=== PATIENT | female | born 1960 | race Caucasian/White ===

== ENCOUNTER 2018-04-22 15:56 | Emergency (ER) | payer BC ==
--- NOTE | 2018-04-22 16:24 | Emergency Department Record ---
History of Present Illness - General Chief complaint: Female Urogenital Problem Stated complaint: COUGH,VAGINAL BLEEDING Time Seen by Provider: 04/22/18 16:15 Source: Patient Mode of Arrival: Ambulatory Limitations: No limitations - History of Present Illness Initial comments: The patient is here due to a 7 day hx of cough and congestion but about 2 hours ago began to urinate and noticed blood. She denies any AP, nausea, vomiting, back pain or fever. She has no hx of kidney or bladder issues. MD Complaint: Other Onset/Timin -: Hour(s) Severity: Moderate Severity scale (1-10): 7 Quality: Burning, Other Consistency: Intermittent Improves with: None Worsens with: Urination Patient : No Associated Symptoms: Dysuria, Hematuria - Related Data Home Medications Medication Instructions Recorded Confirmed Last Taken Amlodipine Besylate/Benazepril 1 tab PO DAILY 04/22/18 04/22/18 04/22/18 [Amlodipine-Benazepril 10-40 mg] Atorvastatin Calcium 40 mg PO DAILY 04/22/18 04/22/18 04/21/18 Insulin Aspart [Novolog Flexpen] 10 units SQ ASDIR 04/22/18 04/22/18 04/22/18 Insulin Degludec [Tresiba 52 units SQ ASDIR 04/22/18 04/22/18 04/22/18 Flextouch U-200] Methimazole 5 mg PO ASDIR 04/22/18 04/22/18 04/22/18 Metoprolol Succinate 25 mg PO DAILY 04/22/18 04/22/18 04/22/18 Previous Rx's Medication Instructions Recorded Ciprofloxacin HCl [Cipro] 500 mg PO Q12HR #14 tablet 04/22/18 Phenazopyridine HCl [Pyridium] 100 mg PO TID #6 tablet 04/22/18 Allergies Allergy/AdvReac Type Severity Reaction Status Date / Time No Known Drug Allergies Allergy Verified 04/22/18 16:02 Travel Screening - Travel/Exposure Within Last 30 Days Have you traveled within the last 30 days?: No - Travel/Exposure Within Last Year Have you traveled outside the [place] in the last year?: No - Additonal Travel Details Have you been exposed to anyone with a communicable illness?: No - Travel Symptoms Symptom Screening: None Review of Systems Constitutional: Denies: Chills, Fever Eyes: Denies: Eye discharge ENT: Reports: Congestion Respiratory: Reports: Cough. Denies: Dyspnea Cardiovascular: Denies: Arrhythmia, Chest pain Endocrine: Denies: Fatigue Gastrointestinal: Denies: Abdominal pain, Nausea Genitourinary: Reports: Hematuria. Denies: Dysuria Musculoskeletal: Denies: Arthralgia Skin: Denies: Bruising Past Medical History - SOCIAL HISTORY Smoking Status: Never smoker Alcohol Use: None Drug Use: None - RESPIRATORY Hx Respiratory Disorders: No - CARDIOVASCULAR Hx Cardio Disorders: Yes Hx Hypertension: Yes (well controlled) - NEURO Hx Neuro Disorders: No - GI Hx GI Disorders: Yes Comment:: c/o abn bowel habits d/t hyperthyroid - Hx Genitourinary Disorders: Yes Hx UTI: Yes - ENDOCRINE Hx Endocrine Disorders: Yes Hx Diabetes: Yes Hx Thyroid Disease: Yes (hyperthyroid) - MUSCULOSKELETAL Hx Musculoskeletal Disorders: Yes - PSYCH Hx Psych Problems: No - HEMATOLOGY/ONCOLOGY Hx Hematology/Oncology Disorders: No Family Medical History Any Significant Family History?: No *Cancer Comment: Maternal uncle and cousin--colon cancer Physical Exam - General General Appearance: Alert, Oriented x3, Cooperative, No acute distress - Head Head exam: Atraumatic, Normocephalic, Normal inspection - Eye Eye exam: Normal appearance, PERRL, EOMI - ENT Throat exam: Normal inspection. negative: Tonsillar erythema, Tonsillar exudate - Neck Neck exam: Normal inspection, Full ROM. negative: Tenderness - Respiratory Respiratory exam: Normal lung sounds bilaterally. negative: Respiratory distress - Cardiovascular Cardiovascular Exam: Regular rate, Normal rhythm, Normal heart sounds - GI/Abdominal GI/Abdominal exam: Soft, Normal bowel sounds. negative: Rebound, Rigid, Tenderness - exam: negative: Abnormal external exam, Vaginal bleeding (There was no blood in the vaginal vault.), Vaginal discharge - Extremities Extremities exam: Normal inspection, Full ROM, Normal capillary refill. negative: Tenderness - Neurological Neurological exam: Alert, Normal gait. negative: Abnormal gait, Motor sensory deficit Course Vital Signs 04/22/18 16:07 Temperature 98.9 F Pulse Rate 82 Respiratory 18 Rate Blood Pressure 174/91 Pulse Ox 96 - Reevaluation(s) Reevaluation #1: The patient is doing very well at this time. Her bleeding has resolved at this time and she has no AP. Since the bleeding does appear to be coming from the bladder and she feels like she has a UTI we will treat for the presumed infection. The CT does demonstrate a VERY large fibroid that appears to be crowding out the bladder and pelvis. Due to that the patient is to see her [facility] doctor SENG and also is to F/U with Dr. Rider tomorrow as previously planned. 04/22/18 18:16 Medical Decision Making - Data Complexity MDM Data: Labs Ordered and/or Reviewed, X-Ray Ordered and/or Reviewed - Lab Data Result diagrams: 04/22/18 16:40 04/22/18 16:40 - Radiology Data Radiology results: Report reviewed (Abd CT: Very large uterine fibroid. Kidney and bladder appear normal.) Disposition Disposition: Discharge Clinical Impression: Hematuria Qualifiers: Hematuria type: unspecified type Qualified Code(s): R31.9 - Hematuria, unspecified Fibroid, uterine Qualifiers: Uterine leiomyoma location: unspecified location Qualified Code(s): D25.9 - Leiomyoma of uterus, unspecified Disposition: Home, Self-Care Condition: (2) Stable Instructions: Uterine Fibroids (ED), Hematuria (ED) Additional Instructions: Please take the Cipro and Pyridium as directed and please keep your appointment with Dr. Rider for tomorrow. Please see your [facility] specialist SENG and return to the ER for any worsening pain, fever, or vomiting. Prescriptions: Ciprofloxacin HCl [Cipro] 500 mg PO Q12HR #14 tablet Phenazopyridine HCl [Pyridium] 100 mg PO TID #6 tablet Forms: Patient Portal Access Time of Disposition: 18:20 Quality - Quality Measures Quality Measures: N/A - Blood Pressure Screening View Details: Yes Does Patient Have Any of the Following: No Blood Pressure Classification: Hypertensive Reading Systolic Measurement: 174 Diastolic Measurement: 91 Screening for High Blood Pressure: < First Hypertensive BP, F/U Documented > [ [id number]] First Hypertensive Follow-up Interventions: Referral to alternative/primary care provider.
[2018-04-22 16:42] LABS: URINE BILIRUBIN NEGATIVE (NEGATIVE); URINE BLOOD LARGE (NEGATIVE); URINE COLOR YELLOW; URINE KETONE NEGATIVE (NEGATIVE); URINE LEUKOCYTE ESTERASE SMALL (NEGATIVE); URINE NITRITE NEGATIVE (NEGATIVE); URINE UROBILINOGEN 0.2 E.U./dL (0.20 - 1.00)
[2018-04-22 16:54] LABS: URINE PROTEIN 300 mg/dL (NEGATIVE)
[2018-04-22 16:56] LABS: URINE BACTERIA 0
[2018-04-22 17:00] LABS: URINE APPEARANCE CLEAR
[2018-04-22 17:02] LABS: BASO % 0.3 % (0-6); EOS % 2.3 % (0-6); GRAN % 79.1 % (47-80); HEMATOCRIT 44.1 % (35.0-47.0); HEMOGLOBIN 14.1 gm/dl (11.6-16.0); LYMPH % 11.8 % (16-45); MEAN CELL VOLUME 86.1 fl (81-97); MEAN CORPUSCULAR HEMOGLOBIN 27.5 pg (27-33); MEAN PLATELET VOLUME 10.2 fl (7.4-10.4); MONO % 6.5 % (0-9); PLATELET COUNT 246 K/uL (130-400); RED BLOOD COUNT 5.12 M/uL (3.80-5.40); RED CELL DISTRIBUTION WIDTH 13.9 % (11.5-14.5); WHITE BLOOD COUNT W/O DIFF 11.9 K/uL (4.2-12.2)
[2018-04-22 17:15] LABS: PARTIAL THROMBOPLASTIN TIME 27.8 SECONDS (24.5-39.1); PROTHROMBIN TIME (PATIENT) 10.3 SECONDS (9.5-12.1)
[2018-04-22 17:16] LABS: BLOOD UREA NITROGEN 14 mg/dL (6-20); CREATININE 0.5 mg/dL (0.5-0.9); EST GLOMERULAR FILTRATION RATE > 60 mL/min
[2018-04-22 17:18] LABS: GLUCOSE,RANDOM 220 mg/dL (74-109)
[2018-04-22] MEDS: 0.9 % SODIUM CHLORIDE 1,000 ML BAG IV ONE (17:32)
[2018-04-22] MEDS: KETOROLAC 30 MG/ML VIAL IVP ONE (17:32)
[2018-04-22] MEDS: CIPROFLOXACIN HCL 500 MG TABLET PO ONE (17:55)
--- NOTE | 2018-04-23 14:50 | CT SCAN REPORT ---
EXAM: NONCONTRAST CT OF THE ABDOMEN AND PELVIS HISTORY: HEMATURIA. TECHNIQUE: Noncontrast CT of the abdomen and pelvis was obtained. Comparison: CT of the abdomen and pelvis 11/27/10. FINDINGS: The lung bases are clear. Unremarkable noncontrast appearance of the liver, gallbladder, spleen, adrenal glands, and pancreas. No hydronephrosis. No calculi is detected. No focal colonic thickening or inflammatory changes. The appendix is normal. The stomach and small bowel are nondilated. No free air or free fluid in the abdomen or pelvis. The aorta has normal course and caliber. Significant enlargement of the uterus, measuring approximately 9.1 x 15.6 x 24 cm (AP x TV x CC), enlarged from 2011 comparison where it measured approximately 19 cm in length. The uterus has a lobulated contour with scattered intraparenchymal calcifications. The enlarged uterus results in mass effect on the urinary bladder. No focal adnexal abnormalities are appreciated. No suspicious lymphadenopathy is identified. Disk degeneration noted at L5-S1. No definite acute osseous findings. IMPRESSION: 1. NO EVIDENCE OF OBSTRUCTIVE UROPATHY OR UROLITHIASIS. 2. SIGNIFICANT ENLARGEMENT OF THE UTERUS WITH EXTENSIVE LOBULATION AND INTERNAL CALCIFICATIONS, SUGGESTIVE OF MASSIVE FIBROID UTERUS. THE UTERUS HAS ENLARGED MILDLY SINCE 2011 CT COMPARISON. THERE IS SIGNIFICANT MASS EFFECT ON THE ADJACENT URINARY BLADDER. JOB NUMBER: [id number] [facility]
--- NOTE | 2018-04-23 14:51 | RADIOLOGY REPORT ---
EXAM: CHEST, TWO VIEWS HISTORY: COUGH FOR ONE WEEK. TECHNIQUE: Two views of the chest were obtained. Comparison: None. FINDINGS: The cardiac silhouette is within normal size limits. No focal pulmonary consolidation. No pleural effusion or pneumothorax. IMPRESSION: NO ACUTE LUNG FINDINGS. JOB NUMBER: [id number] [facility]
== END 2018-04-22 18:31 | disposition home or self-care (01) ==
LOC: ER 15:56
DX: R31.0 Gross hematuria (principal); R30.0 Dysuria; D52.9 Folate deficiency anemia, unspecified; R05 Cough; I10 Essential (primary) hypertension; E11.9 Type 2 diabetes mellitus without complications; Z79.4 Long term (current) use of insulin
CPT/HCPCS: 99284 ×2; 96374; 85025; 85730; 85610; 80048; 81001; 84145; 71046; 74176; J1885; J7030

== ENCOUNTER 2018-10-25 20:24 | Inpatient (IN) | payer BC ==
[2018-10-25] MEDS ORDERED: 0.9 % SODIUM CHLORIDE 1,000 ML BAG IV ONE ×2 (20:57→20:58)
[2018-10-25] MEDS ORDERED: CEFTRIAXONE SODIUM 1 GM in 0.9 % SODIUM CHLORIDE 100ML 100 ML IVPB ONE (20:58)
--- NOTE | 2018-10-25 20:59 | Emergency Department Record ---
History of Present Illness - General Chief Complaint: Cough Stated Complaint: FEVER,COUGH, Time Seen by Provider: 10/25/18 20:47 Source: Patient Mode of Arrival: Ambulatory - History of Present Illness Initial Comments: Patient states that she developed a cough cold and congestion of 10-20-18. On Friday she developed a fever to 101.5 a cough productive of yellow blood tinged sputum, shortness of breath, myalgias and arthralgias. She also has no appetite, is not able to sleep, and her blood sugar is running high in the 300's today. She is a type I [facility] she also noted her pulse is fast and she has a touch of ketones. MD Complaint: Cough, Fever Onset/Timin -: Days(s) - Related Data Allergies Allergy/AdvReac Type Severity Reaction Status Date / Time No Known Drug Allergies Allergy Verified 04/22/18 16:02 Travel Screening - Travel/Exposure Within Last 30 Days Have you traveled within the last 30 days?: No Review of Systems Reviewed: No additional complaints except as noted below Constitutional: Reports: As per HPI. Denies: Chills, Fever, Malaise, Night sweats, Weakness, Weight change Eyes: Reports: As per HPI. Denies: Eye discharge, Eye pain, Photophobia, Vision change ENT: Reports: As per HPI. Denies: Congestion, Dental pain, Ear pain, Epistaxis, Hearing loss, Throat pain Respiratory: Reports: As per HPI. Denies: Cough, Dyspnea, Hemoptysis, Stridor, Wheezes Cardiovascular: Reports: As per HPI. Denies: Arrhythmia, Chest pain, Dyspnea on exertion, Edema, Murmurs, Orthopnea, Palpitations, Paroxysmal nocturnal dyspnea, Rheumatic Fever, Syncope Endocrine: Reports: As per HPI. Denies: Fatigue, Heat or cold intolerance, Fercho ydipsia, Polyuria Gastrointestinal: Reports: As per HPI. Denies: Abdominal pain, Constipation, Diarrhea, Hematemesis, Hematochezia, Melena, Nausea, Vomiting Genitourinary: Reports: As per HPI. Denies: Abnormal menses, Discharge, Dyspareunia, Dysuria, Frequency, Hematuria, Incontinence, Retention, Urgency Musculoskeletal: Reports: As per HPI. Denies: Arthralgia, Back pain, Gout, Joint swelling, Myalgia, Neck pain Skin: Reports: As per HPI. Denies: Bruising, Change in color, Change in hair/nails, Lesions, Pruritus, Rash Neurological: Reports: As per HPI. Denies: Abnormal gait, Confusion, Headache, Numbness, Paresthesias, Seizure, Tingling, Tremors, Vertigo, Weakness Psychiatric: Reports: As per HPI. Denies: Anxiety, Auditory hallucinations, Depression, Homicidal thoughts, Suicidal thoughts, Visual hallucinations Hematological/Lymphatic: Reports: As per HPI. Denies: Anemia, Blood Clots, Easy bleeding, Easy bruising, Swollen glands Past Medical History - SOCIAL HISTORY Smoking Status: Never smoker Alcohol Use: None Drug Use: None - RESPIRATORY Hx Respiratory Disorders: No - CARDIOVASCULAR Hx Cardio Disorders: Yes Hx Hypertension: Yes (well controlled) - NEURO Hx Neuro Disorders: No - GI Hx GI Disorders: Yes Comment:: c/o abn bowel habits d/t hyperthyroid - Hx Genitourinary Disorders: Yes Hx UTI: Yes - ENDOCRINE Hx Endocrine Disorders: Yes Hx Diabetes: Yes Hx Thyroid Disease: Yes (hyperthyroid) - MUSCULOSKELETAL Hx Musculoskeletal Disorders: Yes - PSYCH Hx Psych Problems: No - HEMATOLOGY/ONCOLOGY Hx Hematology/Oncology Disorders: No Family Medical History Any Significant Family History?: Yes *Cancer Comment: Maternal uncle and cousin--colon cancer Physical Exam - General General Appearance: Alert, Oriented x3, Cooperative, Mild distress - Head Head exam: Normal inspection - Eye Eye exam: Normal appearance, PERRL, EOMI. negative: Conjunctival injection, Nystagmus Pupils: Normal accommodation - ENT ENT exam: Normal exam, Mucous membranes dry, Normal external ear exam, Normal orophraynx, TM's normal bilaterally Ear exam: Normal external inspection. negative: External canal tenderness Nasal Exam: Normal inspection. negative: Discharge, Sinus tenderness Mouth exam: Normal external inspection, Tongue normal Teeth exam: Normal inspection. negative: Dental caries Throat exam: Normal inspection. negative: Tonsillar erythema, Tonsillar exudate - Neck Neck exam: Normal inspection, Full ROM. negative: Lymphadenopathy, Meningismus, Tenderness - Respiratory Respiratory exam: Prolonged expiratory, Respiratory distress (mild), Wheezes (expiratory wheeze), Other (coarse coughing spasms). negative: Chest wall tenderness - Cardiovascular Cardiovascular Exam: Normal rhythm, Normal heart sounds, Tachycardia - GI/Abdominal GI/Abdominal exam: Soft, Normal bowel sounds. negative: Tenderness - Rectal Rectal exam: Deferred - exam: Deferred - Extremities Extremities exam: Normal inspection, Full ROM, Normal capillary refill. negative: Calf tenderness, Pedal edema, Tenderness - Back Back exam: Reports: Normal inspection, Full ROM. Denies: Muscle spasm, Rash noted, Tenderness - Neurological Neurological exam: Alert, CN II-XII intact, Normal gait, Oriented X3, Reflexes normal. negative: Altered, Motor sensory deficit - Psychiatric Psychiatric exam: Normal affect, Normal mood - Skin Skin exam: Dry, Intact, Normal color, Warm Course Vital Signs 10/25/18 20:35 Temperature 100.6 F H Pulse Rate [ 103 H Left] Respiratory 16 Rate Blood Pressure 174/105 [Left] Pulse Ox 94 L - Reevaluation(s) Reevaluation #1: Patient is feeling slightly better after fluids. Continues to have coughing spasms intermittently. RA biox 94%. She has elevated lactate and WBC's. PAtient agrees to admission with CT showing no PE, but multiple focal infiltrates and consolidation in the upper lobes bilaterally. there is a pulmonary nodule in the RML and left apex 8 mm maximum. Per [facility]. 10/26/18 00:22 Medical Decision Making - Lab Data Result diagrams: 10/25/18 21:00 10/25/18 21:00 Disposition Disposition: Admit Clinical Impression: Elevated lactic acid level Bilateral pneumonia Qualifiers: Pneumonia type: due to unspecified organism Lung location: unspecified part of lung Qualified Code(s): J18.9 - Pneumonia, unspecified organism Type 1 diabetes mellitus Qualifiers: Diabetes mellitus complication status: without complication Qualified Code(s): E10.9 - Type 1 diabetes mellitus without complications Disposition: Still a Patient at [facility] Decision to Admit: Admit from ER Decision to Admit Date: 10/26/18 Decision to Admit Time: 01:00 Accepting Physician: Dr. Blancas Condition: (2) Stable Quality - Quality Measures Quality Measures: N/A - Blood Pressure Screening Does Patient Have Any of the Following: No Blood Pressure Classification: Hypertensive Reading Systolic Measurement: 174 Diastolic Measurement: 105 Screening for High Blood Pressure: Patient Exclusion, Hx of HTN [G9744]
[2018-10-25] MEDS ORDERED: IPRATROPIUM/ALBUTEROL (0.5MG/3MG) NEB INH ONE (21:00)
[2018-10-25] MEDS ORDERED: ALBUTEROL (0.5% CONCENTRATED) 2.5 MG/0.5 ML VIAL.NEB INH ONE (21:01)
[2018-10-25 21:16] LABS: BASO % 0.4 % (0-6); EOS % 1.5 % (0-6); HEMATOCRIT 40.6 % (35.0-47.0); LYMPH % 10.5 % (16-45); MEAN CELL VOLUME 86.4 fl (81-97); MEAN CORPUSCULAR HEMOGLOBIN 27.7 pg (27-33); MEAN PLATELET VOLUME 10.5 fl (7.4-10.4); MONO % 8.6 % (0-9); PLATELET COUNT 252 K/uL (130-400); RED CELL DISTRIBUTION WIDTH 13.6 % (11.5-14.5); WHITE BLOOD COUNT W/O DIFF 12.4 K/uL (4.2-12.2)
[2018-10-25 21:31] LABS: BLOOD UREA NITROGEN 9 mg/dL (6-20); CREATININE 0.6 mg/dL (0.5-0.9); EST GLOMERULAR FILTRATION RATE > 60 mL/min
[2018-10-25 21:32] LABS: TOTAL PROTEIN 7.6 g/dL (6.6-8.7)
[2018-10-25 21:34] LABS: GLUCOSE,RANDOM 264 mg/dL (74-109)
[2018-10-25 21:36] LABS: ALT/SGPT 21 U/L (<33)
[2018-10-25 21:37] LABS: ACETONE,SERUM NEGATIVE (NEGATIVE); ALBUMIN 3.8 g/dL (4.0-5.0); ALKALINE PHOSPHATASE 157 U/L (35-104); AST/SGOT 22 U/L (10.0-35.0)
[2018-10-25 22:48] LABS: URINE APPEARANCE CLEAR; URINE BILIRUBIN NEGATIVE (NEGATIVE); URINE BLOOD TRACE-I (NEGATIVE); URINE COLOR YELLOW; URINE KETONE NEGATIVE (NEGATIVE); URINE LEUKOCYTE ESTERASE NEGATIVE (NEGATIVE); URINE NITRITE NEGATIVE (NEGATIVE); URINE PROTEIN NEGATIVE (NEGATIVE); URINE UROBILINOGEN 0.2 E.U./dL (0.20 - 1.00)
[2018-10-25 22:53] LABS: URINE EPITHELIAL CELLS 0 - 2 (FEW); URINE RBC NONE SEEN (NONE SEEN); URINE WBC NONE SEEN (0-2/hpf)
[2018-10-26] MEDS ORDERED: AZITHROMYCIN 500 MG TABLET PO ONE (00:20)
[2018-10-26] MEDS ORDERED: IPRATROPIUM/ALBUTEROL (0.5MG/3MG) NEB INH ONE (00:21)
[2018-10-26] MEDS ORDERED: 0.9 % SODIUM CHLORIDE 1000ML 1,000 ML IV PRN (01:18)
[2018-10-26] MEDS ORDERED: AZITHROMYCIN 500 MG in 0.9 % SODIUM CHLORIDE 250ML 250 ML IVPB SCH ×2 (01:18→22:00)
[2018-10-26] MEDS ORDERED: CEFTRIAXONE SODIUM 1 GM in 0.9 % SODIUM CHLORIDE 100ML 100 ML IVPB SCH (01:18)
[2018-10-26] MEDS: IPRATROPIUM/ALBUTEROL (0.5MG/3MG) NEB INH SCH ×2 (05:52→10:36)
[2018-10-26] MEDS ORDERED: ALBUTEROL SULFATE (0.083%) 2.5 MG/3 ML NEB INH SCH (06:00)
[2018-10-26 06:29] LABS: ABSOLUTE NEUTROPHIL COUNT 7.95; BASO % 0.3 % (0-6); EOS % 2.4 % (0-6); GRAN % 77.5 % (47-80); HEMATOCRIT 38.2 % (35.0-47.0); LYMPH % 11.2 % (16-45); MEAN CELL VOLUME 87.4 fl (81-97); MEAN CORPUSCULAR HEMOGLOBIN 27.5 pg (27-33); MEAN CORPUSCULAR HGB CONC 31.4 g/dl (32-36); MEAN PLATELET VOLUME 9.8 fl (7.4-10.4); MONO % 8.6 % (0-9); PLATELET COUNT 206 K/uL (130-400); RED BLOOD COUNT 4.37 M/uL (3.80-5.40); RED CELL DISTRIBUTION WIDTH 13.5 % (11.5-14.5); WHITE BLOOD COUNT W/O DIFF 10.3 K/uL (4.2-12.2)
[2018-10-26 06:51] LABS: ALB/GLOB RATIO 1.1 (1.1-1.8); ALBUMIN 3.5 g/dL (4.0-5.0); ALKALINE PHOSPHATASE 138 U/L (35-104); ALT/SGPT 17 U/L (<33); AST/SGOT 16 U/L (10.0-35.0); BLOOD UREA NITROGEN 7 mg/dL (6-20); CREATININE 0.6 mg/dL (0.5-0.9); EST GLOMERULAR FILTRATION RATE > 60 mL/min; GLUCOSE,RANDOM 300 mg/dL (74-109); TOTAL PROTEIN 6.6 g/dL (6.6-8.7)
[2018-10-26] MEDS ORDERED: ALBUTEROL SULFATE (0.083%) 2.5 MG/3 ML NEB INH PRN (07:46)
[2018-10-26] MEDS: BENAZEPRIL 20 MG TABLET PO SCH (09:38)
[2018-10-26] MEDS: AMLODIPINE BESYLATE 5MG TAB PO SCH (09:38)
[2018-10-26] MEDS ORDERED: METOPROLOL SUCC 25 MG TAB.ER PO SCH (10:00)
[2018-10-26] MEDS ORDERED: METHIMAZOLE 2.5 MG PO SCH (10:00)
--- NOTE | 2018-10-26 10:07 | History & Physical ---
History of Present Illness - Date of Service Date of Service for History & Physical: 10/26/18 - History of Present Illness Admitting Diagnosis: Bilateral pneumonia; leukocytosis, elevated lactate, Type 1 Diabetes, dyspnea History of Present Illness: Mrs. Reyes is a 58 y/o female with history of type I diabetes, hypertension and Grave's disease here after having cold like symptoms beginning last Friday. The patient says she began to feel weak and then noticed that she had a fever of 101.2. She says that her blood sugars were also becoming uncontrolled and she developed a productive cough followed by mild shortness of breath. The patient denies recent travel, sick contacts or hospital admissions. She takes annual flu shot but says that she hasn't had the pneumonia vaccines. On arrival to the ED the patient's d-dimer was elevated at 1.181 and subsequent CTA was negative for PE but showed multiple focal infiltrates of the bilateral, upper and lower lungs. The patient was mildly tachycardic and had mild fever of 100.1 on admission. She is admitted for bilateral pneumonia and hyperglycemia. PCP: Dr. Rider Travel Screening - Travel/Exposure Within Last 30 Days Have you traveled within the last 30 days?: No - Travel/Exposure Within Last Year Have you traveled outside the [place] in the last year?: No - Additonal Travel Details Have you been exposed to anyone with a communicable illness?: No Review of Systems Constitutional: Reports: As per HPI. Denies: Chills, Fever, Malaise, Night sweats, Weakness, Weight change Eyes: Reports: As per HPI. Denies: Eye discharge, Eye pain, Photophobia, Vision change ENT: Reports: As per HPI. Denies: Congestion, Dental pain, Ear pain, Epistaxis, Hearing loss, Throat pain Respiratory: Reports: As per HPI. Denies: Cough, Dyspnea, Hemoptysis, Stridor, Wheezes Cardiovascular: Reports: As per HPI. Denies: Arrhythmia, Chest pain, Dyspnea on exertion, Edema, Murmurs, Orthopnea, Palpitations, Paroxysmal nocturnal dyspnea, Rheumatic Fever, Syncope Endocrine: Reports: As per HPI. Denies: Fatigue, Heat or cold intolerance, Polydipsia, Polyuria Gastrointestinal: Reports: As per HPI. Denies: Abdominal pain, Constipation, Diarrhea, Hematemesis, Hematochezia, Melena, Nausea, Vomiting Genitourinary: Reports: As per HPI. Denies: Abnormal menses, Discharge, Dyspareunia, Dysuria, Frequency, Hematuria, Incontinence, Retention, Urgency Musculoskeletal: Reports: As per HPI. Denies: Arthralgia, Back pain, Gout, Joint swelling, Myalgia, Neck pain Skin: Reports: As per HPI. Denies: Bruising, Change in color, Change in hair/nails, Lesions, Pruritus, Rash Neurological: Reports: As per HPI. Denies: Abnormal gait, Confusion, Headache, Numbness, Paresthesias, Seizure, Tingling, Tremors, Vertigo, Weakness Psychiatric: Reports: As per HPI. Denies: Anxiety, Auditory hallucinations, Depression, Homicidal thoughts, Suicidal thoughts, Visual hallucinations Hematological/Lymphatic: Reports: As per HPI. Denies: Anemia, Blood Clots, Easy bleeding, Easy bruising, Swollen glands Past Medical History - SOCIAL HISTORY Smoking Status: Never smoker Alcohol Use: None Drug Use: None - RESPIRATORY Hx Respiratory Disorders: No - CARDIOVASCULAR Hx Cardio Disorders: Yes Hx Hypertension: Yes (well controlled) - NEURO Hx Neuro Disorders: No - GI Hx GI Disorders: Yes Comment:: c/o abn bowel habits d/t hyperthyroid - Hx Genitourinary Disorders: Yes Hx UTI: Yes - ENDOCRINE Hx Endocrine Disorders: Yes Hx Diabetes: Yes Hx Thyroid Disease: Yes (hyperthyroid) - MUSCULOSKELETAL Hx Musculoskeletal Disorders: Yes - PSYCH Hx Psych Problems: No - HEMATOLOGY/ONCOLOGY Hx Hematology/Oncology Disorders: No Family Medical History Any Significant Family History?: Yes *Cancer Comment: Maternal uncle and cousin--colon cancer H&P Meds/Allergies - Allergies Allergies: Allergies Allergy/AdvReac Type Severity Reaction Status Date / Time No Known Drug Allergies Allergy Verified 04/22/18 16:02 - Active Medications Active Medications: Current Medications Acetaminophen (Tylenol 500mg Tab) 1,000 mg PO Q6H PRN PRN Reason: PAIN - MILD(1-4)/FEVER Albuterol Sulfate (Albuterol Sulfate) 2.5 mg INH RESP.Q2H PRN PRN Reason: DIFFICULTY IN BREATHING Albuterol/Ipratropium (Duoneb) 3 ml INH RESP.Q4H.[facility] Last Admin: 10/26/18 05:52 Dose: 3 ml Documented by: Amlodipine Besylate (Norvasc) 10 mg PO DAILY [facility] Last Admin: 10/26/18 09:38 Dose: Not Given Documented by: Benazepril HCl (Lotensin) 40 mg PO DAILY [facility] Last Admin: 10/26/18 09:38 Dose: Not Given Documented by: Sodium Chloride () 1,000 mls @ 125 mls/hr IV .Q8H PRN PRN Reason: LARGE VOLUME IV Last Admin: 10/26/18 02:16 Dose: 125 mls/hr Documented by: Azithromycin 500 mg/ Sodium (Chloride) 250 mls @ 250 mls/hr IVPB Q24H [facility] Stop: 10/31/18 22:01 CEFTRIAXONE 1GM/50ML BAG (Ceftriaxone 1 Gm-D5w Bag) 1 gm in 50 mls @ 100 mls/hr IVPB Q24H [facility] Metoprolol Succinate (Toprol Xl) 25 mg PO DAILY [facility] Last Admin: 10/26/18 09:38 Dose: Not Given Documented by: Non-Formulary Medication (Insulin Aspart [Novolog Flexpen]) 10 units IM WMEALS [facility] Non-Formulary Medication (Insulin Degludec [Tresiba Flextouch U-200]) 56 units IM DAILY [facility] Non-Formulary Medication (Methimazole [Methimazole]) 5 mg PO DAILY [facility] Physical Exam - Vital Signs Vital Signs: Vital Signs - Last 24 Hrs Temp Pulse Pulse Resp BP Pulse Ox 10/26/18 07:28 97.6 F 90 18 130/60 96 10/26/18 06:02 22 10/26/18 05:58 86 20 92 L 10/26/18 01:47 20 10/26/18 01:18 98.1 F 95 H 22 146/60 94 L 10/26/18 00:40 97.7 F 87 20 94 L 10/26/18 00:38 90 20 94 L 10/25/18 21:03 97 H 18 95 10/25/18 20:35 100.6 F H 103 H 16 174/105 94 L - General General Appearance: Alert, Oriented x3, Cooperative, Mild distress - Head Head exam: Normal inspection - Eye Eye exam: Normal appearance, PERRL, EOMI. negative: Conjunctival injection, Nystagmus Pupils: Normal accommodation - ENT ENT exam: Normal exam, Mucous membranes dry, Normal external ear exam, Normal orophraynx, TM's normal bilaterally Ear exam: Normal external inspection. negative: External canal tenderness Nasal Exam: Normal inspection. negative: Discharge, Sinus tenderness Mouth exam: Normal external inspection, Tongue normal Teeth exam: Normal inspection. negative: Dental caries Throat exam: Normal inspection. negative: Tonsillar erythema, Tonsillar exudate - Neck Neck exam: Normal inspection, Full ROM. negative: Lymphadenopathy, Meningismus, Tenderness - Respiratory Respiratory exam: Prolonged expiratory, Other (intermittent cough). negative: Chest wall tenderness - Cardiovascular Cardiovascular Exam: Normal rhythm, Normal heart sounds, Tachycardia Peripheral Pulses: 3+: Radial (R), Radial (L), Dorsalis Pedis (R), Dorsalis Pedis (L) - GI/Abdominal GI/Abdominal exam: Soft, Normal bowel sounds. negative: Tenderness - Rectal Rectal exam: Deferred - exam: Deferred - Extremities Extremities exam: Normal inspection, Full ROM, Normal capillary refill. negative: Calf tenderness, Pedal edema, Tenderness - Back Back exam: Reports: Normal inspection, Full ROM. Denies: Muscle spasm, Rash noted, Tenderness - Neurological Neurological exam: Alert, CN II-XII intact, Normal gait, Oriented X3, Reflexes normal. negative: Altered, Motor sensory deficit - Psychiatric Psychiatric exam: Normal affect, Normal mood - Skin Skin exam: Dry, Intact, Normal color, Warm Results - Labs Result Diagrams: 10/26/18 06:25 10/26/18 06:25 Labs Last 24 Hours: Laboratory Results - last 24 hr 10/25/18 10/25/18 10/25/18 20:10 20:47 21:00 WBC 12.4 H RBC 4.70 Hgb 13.0 Hct 40.6 MCV 86.4 MCH 27.7 MCHC 32.0 RDW 13.6 Plt Count 252 MPV 10.5 H Gran % 79.0 Lymphocytes % 10.5 L Monocytes % 8.6 Eosinophils % 1.5 Basophils % 0.4 Absolute Neutrophils 9.80 D-Dimer VBG pH Sodium Potassium Chloride Carbon Dioxide Anion Gap BUN Creatinine Estimated GFR Random Glucose Lactic Acid Calcium Total Bilirubin AST ALT Alkaline Phosphatase Total Protein Albumin Globulin Albumin/Globulin Ratio Urine Color Yellow Urine Appearance Clear Urine pH 6.5 Ur Specific [place] <= 1.005 Urine Protein Negative Urine Glucose (UA) 100 mg/dl H Urine Ketones Negative Urine Blood Trace-i Urine Nitrite Negative Urine Bilirubin Negative Urine Urobilinogen 0.2 Ur Leukocyte Esterase Negative Urine RBC None seen Urine WBC None seen Ur Epithelial Cells 0 - 2 Acetone, Qual Group A Strep Screen Negative 10/25/18 10/25/18 10/25/18 21:00 21:00 21:00 WBC RBC Hgb Hct MCV MCH MCHC RDW Plt Count MPV Gran % Lymphocytes % Monocytes % Eosinophils % Basophils % Absolute Neutrophils D-Dimer 1.81 H VBG pH 7.45 H Sodium 136 Potassium 3.8 Chloride 97 L Carbon Dioxide 23.0 Anion Gap 16.0 BUN 9 Creatinine 0.6 Estimated GFR > 60 Random Glucose 264 H Lactic Acid Cancelled 1.4 Calcium 8.9 Total Bilirubin 0.50 AST 22 ALT 21 Alkaline Phosphatase 157 H Total Protein 7.6 Albumin 3.8 L Globulin 3.8 Albumin/Globulin Ratio 1.0 L Urine Color Urine Appearance Urine pH Ur Specific [place] Urine Protein Urine Glucose (UA) Urine Ketones Urine Blood Urine Nitrite Urine Bilirubin Urine Urobilinogen Ur Leukocyte Esterase Urine RBC Urine WBC Ur Epithelial Cells Acetone, Qual Negative Group A Strep Screen 10/26/18 10/26/18 06:25 06:25 WBC 10.3 RBC 4.37 Hgb 12.0 Hct 38.2 MCV 87.4 MCH 27.5 MCHC 31.4 L RDW 13.5 Plt Count 206 MPV 9.8 Gran % 77.5 Lymphocytes % 11.2 L Monocytes % 8.6 Eosinophils % 2.4 Basophils % 0.3 Absolute Neutrophils 7.95 D-Dimer VBG pH Sodium 138 Potassium 3.7 Chloride 102 Carbon Dioxide 24.0 Anion Gap 12.0 BUN 7 Creatinine 0.6 Estimated GFR > 60 Random Glucose 300 H Lactic Acid Calcium 8.4 L Total Bilirubin 0.60 AST 16 ALT 17 Alkaline Phosphatase 138 H Total Protein 6.6 Albumin 3.5 L Globulin 3.1 Albumin/Globulin Ratio 1.1 Urine Color Urine Appearance Urine pH Ur Specific [place] Urine Protein Urine Glucose (UA) Urine Ketones Urine Blood Urine Nitrite Urine Bilirubin Urine Urobilinogen Ur Leukocyte Esterase Urine RBC Urine WBC Ur Epithelial Cells Acetone, Qual Group A Strep Screen VTE H&P Assessment - Risk for VTE Risk for VTE: Yes Risk Level: High Risk Assessment Date: 10/26/18 Risk Assessment Time: 09:58 VTE Orders Placed or Will Be Placed: Yes Plan - Inpatient Certification Inpatient Certification: Admit to inpatient care: Based on my medical assessment, after consideration of patient's risk factors (age, co-morbidities and patient presenting symptoms and acuity), I expect that this patient will remain in the hospital greater than or equal to two midnights and that the services needed warrant inpatient care because: Patient Risk Factors: Pneumonia, DM Estimated length of stay: 72 The patient may reasonably be expected to be discharged or transferred to a hospital within 96 hours after admission to [facility] I certify that my determination is in accordance with my understanding of Medicare requirements for reasonable and necessary inpatient services. 10/26/18 09:58 - Detailed Diagnosis and Plan (1) Community acquired pneumonia, bilateral Current Visit: Yes Status: Acute Base Code: J18.9 - PNEUMONIA, UNSPECIFIED ORGANISM Comment: - 10/26/18: - No recent exposure to sick contacts or travel, no hospitalizations. - CTA noting bilateral infiltrates upper/lower. - On Rocephin 1gm IV daily, Zithromax 500mg IV daily, change to PO. - Oxygen to maintain saturations > 92%. - Strep A negative, Check influenza A/B PCR. (2) Type 1 diabetes mellitus Current Visit: Yes Status: Chronic Qualifiers: Diabetes mellitus complication status: without complication Qualified Code(s): E10.9 - Type 1 diabetes mellitus without complications Base Code: E10.9 - TYPE 1 DIABETES MELLITUS WITHOUT COMPLICATIONS Comment: 10/26/18: - Resume home doses of basal bolus insulin Tresiba 56 units daily, correction insulin Novolog 10 units TIDAC, Moderate dose sliding scale ordered. Glycemic protocols for hypoglycemia. - ADA diet ordered. - Glucose target between 140-180mg/dL (3) Elevated d-dimer Current Visit: Yes Status: Acute Base Code: R79.89 - OTHER SPECIFIED ABNORMAL FINDINGS OF BLOOD CHEMISTRY Comment: 10/26/18: - D-dimer elevated 1.81 w/o clear etiology. - PE ruled out by CTA and no clinical suspicion of DVT. (4) HTN, goal below 140/80 Current Visit: Yes Status: Acute Base Code: I10 - ESSENTIAL (PRIMARY) HYPERTENSION Comment: 10/26/18: - Resume Amlodipine 10mg, [id number] and Troprolol XL 25mg. - Holding parameters for SBP <120, (5) Graves disease Current Visit: Yes Status: Acute Base Code: E05.00 - THYROTOXICOSIS W DIFFUSE GOITER W/O THYROTOXIC CRISIS Comment: 10/26/18: - Resume home dose of Methimazole 2.5mg daily. (6) DVT prophylaxis Current Visit: Yes Status: Acute Base Code: Z29.9 - ENCOUNTER FOR PROPHYLACTIC MEASURES, UNSPECIFIED Comment: 04/28/18: - Lovenox 40mg sq daily. (7) Full code status Current Visit: Yes Status: Acute Base Code: Z78.9 - OTHER SPECIFIED HEALTH STATUS Comment: 10/26/18: - Full code status.
[2018-10-26] MEDS: INSULIN ASPART 10 UNIT IM SCH ×2 (12:04→18:23)
[2018-10-26] MEDS: INSULIN DEGLUDEC 56 UNIT IM SCH (12:04)
[2018-10-26] MEDS: GUAIFENESIN 600 MG TABCR PO SCH ×2 (12:06→21:03)
[2018-10-26] MEDS: METHIMAZOLE 5 MG PO SCH (12:06)
[2018-10-26] MEDS: NOVOLOG SC SCH ×2 (12:07→18:28)
[2018-10-26] MEDS: DIPHENHYDRAMINE HCL 25 MG CAPSULE PO PRN ×2 (15:24→21:02)
[2018-10-26] MEDS: ACETAMINOPHEN 500 MG TABLET PO PRN (19:25)
[2018-10-26] MEDS: AZITHROMYCIN 500 MG TABLET PO SCH (21:03)
[2018-10-26] MEDS: METOPROLOL SUCC 25 MG TAB.ER PO SCH (21:04)
[2018-10-26] MEDS: CEFTRIAXONE 1GM/50ML BAG 1 GM/50 ML BAG IVPB SCH (21:05)
--- NOTE | 2018-10-27 05:19 | CT ANGIOGRAM REPORT ---
EXAM: CT ANGIOGRAM OF THE CHEST WITH POST PROCESSING HISTORY: ELEVATED D-DIMER. COUGH, FEVER, AND WEAKNESS. TECHNIQUE: Standard CT angiography of the chest was performed with post processing following the bolus administration of 82 ml of Omnipaque 350. Additional coronal and sagittal maximum intensity projection reformatted images were performed on an independent workstation under concurrent supervision. FINDINGS: The heart is upper normal in size. There is no pericardial effusion. The aorta is normal in caliber and without dissection. The pulmonary arterial tree is normal. There is no evidence for pulmonary embolus. There are borderline to mildly enlarged mediastinal lymph nodes. There is a 1 cm in short axis pretracheal lymph node. There is a 1.3 cm in short axis subcarinal lymph node. Nonenlarged hilar lymph nodes are also present. These are nonspecific, but likely reactive in nature. There are patchy areas of infiltrate/consolidation within both lungs, left greater than right. These are greatest within the left lower lobe and to a lesser degree within the left upper lobe. Similar, but smaller areas are noted within the right upper lobe and medial right lower lobe. The appearance favors bilateral pneumonia. There is a 4 mm noncalcified nodule at the left apex. There is a 7 mm noncalcified subpleural nodule within the right middle lobe at the lateral costophrenic sulcus. Follow-up of these nodules is recommended. There is no pneumothorax or effusion. A tiny hiatal hernia is present. The upper abdomen is otherwise unremarkable. There are no acute osseous abnormalities. IMPRESSION: 1. NO EVIDENCE FOR PULMONARY EMBOLUS OR AORTIC DISSECTION. 2. PATCHY AREAS OF INFILTRATE/CONSOLIDATION WITHIN BOTH LUNGS, LEFT GREATER THAN RIGHT. THE APPEARANCE IS SUSPICIOUS FOR DEVELOPING ACUTE BILATERAL PNEUMONIA. 3. 7 MM NONCALCIFIED NODULE WITHIN THE RIGHT MIDDLE LOBE AND 4 MM NONCALCIFIED NODULE WITHIN THE LEFT APEX. A FOLLOW-UP CT SCAN OF THE CHEST IS RECOMMENDED IN THREE MONTHS TO CONFIRM STABILITY OF THESE AREAS. 4. SMALL HIATAL HERNIA. JOB NUMBER: [id number] [facility]
[2018-10-27 06:59] LABS: ABSOLUTE NEUTROPHIL COUNT 7.71; BASO % 0.4 % (0-6); EOS % 4.4 % (0-6); GRAN % 73.8 % (47-80); HEMATOCRIT 38.1 % (35.0-47.0); HEMOGLOBIN 11.9 gm/dl (11.6-16.0); LYMPH % 13.4 % (16-45); MEAN CORPUSCULAR HEMOGLOBIN 27.5 pg (27-33); MEAN CORPUSCULAR HGB CONC 31.2 g/dl (32-36); MEAN PLATELET VOLUME 10.2 fl (7.4-10.4); PLATELET COUNT 250 K/uL (130-400); RED BLOOD COUNT 4.33 M/uL (3.80-5.40); RED CELL DISTRIBUTION WIDTH 13.6 % (11.5-14.5); WHITE BLOOD COUNT W/O DIFF 10.5 K/uL (4.2-12.2)
[2018-10-27 07:16] LABS: BLOOD UREA NITROGEN 7 mg/dL (6-20); CREATININE 0.5 mg/dL (0.5-0.9); EST GLOMERULAR FILTRATION RATE > 60 mL/min; GLUCOSE,RANDOM 135 mg/dL (74-109)
[2018-10-27] MEDS: INSULIN ASPART 10 UNIT IM SCH ×3 (08:10→17:43)
[2018-10-27] MEDS: NOVOLOG SC SCH ×3 (08:10→17:43)
[2018-10-27] MEDS: INSULIN DEGLUDEC 56 UNIT IM SCH ×2 (08:21→10:03)
[2018-10-27] MEDS: ENOXAPARIN 40 MG/0.4 ML SYR SC SCH (09:53)
[2018-10-27] MEDS: GUAIFENESIN 600 MG TABCR PO SCH ×2 (09:53→21:54)
[2018-10-27] MEDS: BENAZEPRIL 20 MG TABLET PO SCH (09:54)
[2018-10-27] MEDS: AMLODIPINE BESYLATE 5MG TAB PO SCH (09:55)
[2018-10-27] MEDS: METHIMAZOLE 5 MG PO SCH (09:55)
[2018-10-27] MEDS: ACETAMINOPHEN 500 MG TABLET PO PRN ×2 (10:01→20:07)
[2018-10-27] MEDS: IPRATROPIUM/ALBUTEROL (0.5MG/3MG) NEB INH SCH ×4 (12:52→22:00)
--- NOTE | 2018-10-27 16:20 | Physician Progress Note ---
Subjective - Date Date of Physician Progress Note: 10/27/18 - Subjective Subjective Comment: Pt reports still feeing weakness, cold/clammy, painful to cough, shortness of breath with exertion. Denies chest pain but did require O2 at HS but does not have LJ or O2 at home. Objective - Vital Signs Vital Signs: Vital Signs - Last 24 Hrs Temp Pulse Pulse Resp BP Pulse Ox 10/27/18 15:24 73 20 95 10/27/18 12:56 84 18 91 L 10/27/18 12:53 83 18 95 10/27/18 09:08 20 94 L 10/27/18 07:15 99.9 F H 86 19 160/61 89 L 10/26/18 20:06 97.7 F 90 20 175/82 91 L 10/26/18 20:05 20 10/26/18 17:00 99.4 F 97 H 19 176/68 95 - General General Appearance: Alert, Oriented x3, Cooperative, Mild distress - Head Head exam: Normal inspection - Eye Eye exam: Normal appearance, PERRL, EOMI. negative: Conjunctival injection, Nystagmus Pupils: Normal accommodation - ENT ENT exam: Normal exam, Mucous membranes dry, Normal external ear exam, Normal orophraynx, TM's normal bilaterally Ear exam: Normal external inspection. negative: External canal tenderness Nasal Exam: Normal inspection. negative: Discharge, Sinus tenderness Mouth exam: Normal external inspection, Tongue normal Teeth exam: Normal inspection. negative: Dental caries Throat exam: Normal inspection. negative: Tonsillar erythema, Tonsillar exudate - Neck Neck exam: Normal inspection, Full ROM. negative: Lymphadenopathy, Meningismus, Tenderness - Respiratory Respiratory exam: Prolonged expiratory, Wheezes, Other (intermittent cough). negative: Chest wall tenderness - Cardiovascular Cardiovascular Exam: Regular rate, Normal rhythm, Normal heart sounds Peripheral Pulses: 3+: Radial (R), Radial (L), Dorsalis Pedis (R), Dorsalis Pedis (L) - GI/Abdominal GI/Abdominal exam: Soft, Normal bowel sounds. negative: Tenderness - Rectal Rectal exam: Deferred - exam: Deferred - Extremities Extremities exam: Normal inspection, Full ROM, Normal capillary refill. negative: Calf tenderness, Pedal edema, Tenderness - Back Back exam: Reports: Normal inspection, Full ROM. Denies: Muscle spasm, Rash noted, Tenderness - Neurological Neurological exam: Alert, CN II-XII intact, Normal gait, Oriented X3, Reflexes normal. negative: Altered, Motor sensory deficit - Psychiatric Psychiatric exam: Normal affect, Normal mood - Skin Skin exam: Dry, Intact, Normal color, Warm Assessment and Plan - Assessment and Plan (1) Community acquired pneumonia, bilateral Current Visit: Yes Status: Acute Base Code: J18.9 - PNEUMONIA, UNSPECIFIED ORGANISM Comment: 10/27/18 -Cont Rocephin 1gm BID, Zithromax 500mg PO -O2 to maintain >92% -neg strep, Flu A/B -continue Neb tx -7mm Left, 4mm right nodules, repeat CT 3 months - 10/26/18: - No recent exposure to sick contacts or travel, no hospitalizations. - CTA noting bilateral infiltrates upper/lower. - On Rocephin 1gm IV daily, Zithromax 500mg IV daily, change to PO. - Oxygen to maintain saturations > 92%. - Strep A negative, Check influenza A/B PCR. (2) Elevated d-dimer Current Visit: Yes Status: Acute Base Code: R79.89 - OTHER SPECIFIED ABNORMAL FINDINGS OF BLOOD CHEMISTRY Comment: 10/27/18: - D-dimer elevated 1.81 w/o clear etiology. - PE ruled out by CTA and no clinical suspicion of DVT. (3) Graves disease Current Visit: Yes Status: Acute Base Code: E05.00 - THYROTOXICOSIS W DIFFUSE GOITER W/O THYROTOXIC CRISIS Comment: 10/27/18: - Resume home dose of Methimazole 2.5mg daily. (4) HTN, goal below 140/80 Current Visit: Yes Status: Acute Base Code: I10 - ESSENTIAL (PRIMARY) HYPERTENSION Comment: 10/27/18: - Resume Amlodipine 10mg, [id number] and Troprolol XL 25mg. - Holding parameters for SBP <120, (5) Type 1 diabetes mellitus Current Visit: Yes Status: Chronic Qualifiers: Diabetes mellitus complication status: without complication Qualified Code(s): E10.9 - Type 1 diabetes mellitus without complications Base Code: E10.9 - TYPE 1 DIABETES MELLITUS WITHOUT COMPLICATIONS Comment: 10/27/18: - Resume home doses of basal bolus insulin Tresiba 56 units daily, correction insulin Novolog 10 units TIDAC, Moderate dose sliding scale ordered. Glycemic protocols for hypoglycemia. - ADA diet ordered. - Glucose target between 140-180mg/dL (6) Full code status Current Visit: Yes Status: Acute Base Code: Z78.9 - OTHER SPECIFIED HEALTH STATUS Comment: 10/27/18: - Full code status. (7) DVT prophylaxis Current Visit: Yes Status: Acute Base Code: Z29.9 - ENCOUNTER FOR PROPHYLACTIC MEASURES, UNSPECIFIED Comment: 10/27/18: - Lovenox 40mg sq daily. Results - Labs Result Diagrams: 10/27/18 06:15 10/27/18 06:15 Labs Last 24 Hours: Laboratory Results - last 24 hr 10/26/18 10/26/18 10/26/18 11:04 17:01 21:33 WBC RBC Hgb Hct MCV MCH MCHC RDW Plt Count MPV Gran % Lymphocytes % Monocytes % Eosinophils % Basophils % Absolute Neutrophils Sodium Potassium Chloride Carbon Dioxide Anion Gap BUN Creatinine Estimated GFR POC Glucose 152 H 120 H Random Glucose Calcium Specimen Type Nasopharyngeal Nasal Influenza A PCR Not detected Nasal Influenza B PCR Not detected 10/27/18 10/27/18 10/27/18 06:15 06:15 11:35 WBC 10.5 RBC 4.33 Hgb 11.9 Hct 38.1 MCV 88.0 MCH 27.5 MCHC 31.2 L RDW 13.6 Plt Count 250 MPV 10.2 Gran % 73.8 Lymphocytes % 13.4 L Monocytes % 8.0 Eosinophils % 4.4 Basophils % 0.4 Absolute Neutrophils 7.71 Sodium 142 Potassium 3.6 Chloride 104 Carbon Dioxide 26.0 Anion Gap 12.0 BUN 7 Creatinine 0.5 Estimated GFR > 60 POC Glucose 234 H Random Glucose 135 H Calcium 8.7 Specimen Type Nasal Influenza A PCR Nasal Influenza B PCR DVT/PE Assessment - Risk for VTE Risk for VTE: No Risk Level: High Risk Assessment Date: 10/26/18 Risk Assessment Time: 09:58 VTE Orders Placed or Will Be Placed: Yes - Active Medicaitons Current Medications: Current Medications Acetaminophen (Tylenol 500mg Tab) 1,000 mg PO Q6H PRN PRN Reason: PAIN - MILD(1-4)/FEVER Last Admin: 10/27/18 10:01 Dose: 1,000 mg Documented by: Albuterol/Ipratropium (Duoneb) 3 ml INH RESP.Q4H.[facility] Last Admin: 10/27/18 15:21 Dose: 3 ml Documented by: Amlodipine Besylate (Norvasc) 10 mg PO DAILY [facility] Last Admin: 10/27/18 09:55 Dose: Not Given Documented by: Azithromycin (Zithromax) 500 mg PO QHS [facility] Last Admin: 10/26/18 21:03 Dose: 500 mg Documented by: Benazepril HCl (Lotensin) 40 mg PO DAILY [facility] Last Admin: 10/27/18 09:54 Dose: Not Given Documented by: Diphenhydramine HCl (Benadryl Capsule) 50 mg PO Q6H PRN PRN Reason: SLEEP Last Admin: 10/26/18 21:02 Dose: 50 mg Documented by: Enoxaparin Sodium (Lovenox) 40 mg SC DAILY [facility] Last Admin: 10/27/18 09:53 Dose: 40 mg Documented by: Guaifenesin (Mucinex) 600 mg PO BID [facility] Last Admin: 10/27/18 09:53 Dose: 600 mg Documented by: Sodium Chloride () 1,000 mls @ 125 mls/hr IV .Q8H PRN PRN Reason: LARGE VOLUME IV Last Infusion: 10/26/18 12:03 Dose: Infused Documented by: CEFTRIAXONE 1GM/50ML BAG (Ceftriaxone 1 Gm-D5w Bag) 1 gm in 50 mls @ 100 mls/hr IVPB Q24H [facility] Last Infusion: 10/26/18 21:37 Dose: Infused Documented by: Metoprolol Succinate (Toprol Xl) 25 mg PO QHS [facility] Last Admin: 10/26/18 21:04 Dose: 25 mg Documented by: Non-Formulary Medication (Insulin Aspart [Novolog Flexpen]) 10 units IM TIDINS [facility] Last Admin: 10/27/18 12:11 Dose: 10 units Documented by: Non-Formulary Medication (Insulin Degludec [Tresiba Flextouch U-200]) 56 units IM DAILY [facility] Last Admin: 10/27/18 10:03 Dose: Not Given Documented by: Non-Formulary Medication (Methimazole [Methimazole]) 5 mg PO DAILY [facility] Last Admin: 10/27/18 09:55 Dose: 2.5 mg Documented by: Patient Own Med: (Novolog Flexpen) 1 each SC TIDINS [facility]; Protocol Last Admin: 10/27/18 12:11 Dose: 10 each Documented by: AMI Plan - Labs Result Diagrams: 10/27/18 06:15 10/27/18 06:15
[2018-10-27] MEDS: CEFTRIAXONE 1GM/50ML BAG 1 GM/50 ML BAG IVPB SCH (21:06)
[2018-10-27] MEDS: AZITHROMYCIN 500 MG TABLET PO SCH (21:54)
[2018-10-27] MEDS: METOPROLOL SUCC 25 MG TAB.ER PO SCH (21:54)
[2018-10-27] MEDS: DIPHENHYDRAMINE HCL 25 MG CAPSULE PO PRN (21:54)
[2018-10-28 06:58] LABS: ABSOLUTE NEUTROPHIL COUNT 6.57; BASO % 0.6 % (0-6); EOS % 6.2 % (0-6); GRAN % 67.7 % (47-80); HEMATOCRIT 37.7 % (35.0-47.0); HEMOGLOBIN 11.7 gm/dl (11.6-16.0); LYMPH % 16.2 % (16-45); MEAN CELL VOLUME 87.5 fl (81-97); MEAN CORPUSCULAR HEMOGLOBIN 27.1 pg (27-33); MEAN PLATELET VOLUME 10.3 fl (7.4-10.4); MONO % 9.3 % (0-9); PLATELET COUNT 278 K/uL (130-400); RED BLOOD COUNT 4.31 M/uL (3.80-5.40); RED CELL DISTRIBUTION WIDTH 13.7 % (11.5-14.5); WHITE BLOOD COUNT W/O DIFF 9.7 K/uL (4.2-12.2)
[2018-10-28 07:15] LABS: BLOOD UREA NITROGEN 11 mg/dL (6-20); CREATININE 0.5 mg/dL (0.5-0.9); EST GLOMERULAR FILTRATION RATE > 60 mL/min; GLUCOSE,RANDOM 195 mg/dL (74-109)
[2018-10-28] MEDS: IPRATROPIUM/ALBUTEROL (0.5MG/3MG) NEB INH SCH ×5 (07:41→22:13)
[2018-10-28] MEDS: NOVOLOG SC SCH ×3 (08:08→17:49)
[2018-10-28] MEDS: INSULIN ASPART 10 UNIT IM SCH ×3 (08:08→17:48)
[2018-10-28] MEDS: INSULIN DEGLUDEC 56 UNIT IM SCH ×2 (08:09→10:22)
[2018-10-28] MEDS: ENOXAPARIN 40 MG/0.4 ML SYR SC SCH (09:18)
[2018-10-28] MEDS: BENAZEPRIL 20 MG TABLET PO SCH (09:18)
[2018-10-28] MEDS: METHIMAZOLE 5 MG PO SCH (09:19)
[2018-10-28] MEDS: GUAIFENESIN 600 MG TABCR PO SCH ×2 (09:20→22:07)
[2018-10-28] MEDS: AMLODIPINE BESYLATE 5MG TAB PO SCH (09:21)
[2018-10-28] MEDS: BENZONATATE 100 MG CAPSULE PO PRN (10:20)
[2018-10-28] MEDS: ACETAMINOPHEN 500 MG TABLET PO PRN ×2 (12:18→20:41)
[2018-10-28] MEDS ORDERED: CIPROFLOXACIN HCL/DEXAMETHASONE OTIC SUSP OT SCH (13:45)
--- NOTE | 2018-10-28 14:21 | Physician Progress Note ---
Subjective - Date Date of Physician Progress Note: 10/28/18 - Subjective Subjective Comment: Pt reports still feeing weakness, cold/clammy, painful to cough, shortness of breath with exertion. Denies chest pain but did require O2 at HS but does not have LJ or O2 at home. 10/28/18 Pt has continued cough, reports feeling slightly better but having difficulty sleeping with coughing. Objective - Vital Signs Vital Signs: Vital Signs - Last 24 Hrs Temp Pulse Pulse Resp BP Pulse Ox 10/28/18 13:40 75 18 94 L 10/28/18 09:20 95 H 20 94 L 10/28/18 06:00 98.3 F 87 20 173/70 92 L 10/27/18 22:01 81 20 95 10/27/18 21:00 18 10/27/18 19:07 89 20 97 10/27/18 17:00 97.4 F L 76 18 140/70 92 L 10/27/18 15:24 73 20 95 - General General Appearance: Alert, Oriented x3, Cooperative, Mild distress - Head Head exam: Normal inspection - Eye Eye exam: Normal appearance, PERRL, EOMI. negative: Conjunctival injection, Nystagmus Pupils: Normal accommodation - ENT ENT exam: Normal exam, Mucous membranes dry, Normal external ear exam, Normal orophraynx, TM's normal bilaterally Ear exam: Normal external inspection. negative: External canal tenderness Nasal Exam: Normal inspection. negative: Discharge, Sinus tenderness Mouth exam: Normal external inspection, Tongue normal Teeth exam: Normal inspection. negative: Dental caries Throat exam: Normal inspection. negative: Tonsillar erythema, Tonsillar exudate - Neck Neck exam: Normal inspection, Full ROM. negative: Lymphadenopathy, Meningismus, Tenderness - Respiratory Respiratory exam: Prolonged expiratory, Wheezes, Other (intermittent cough). negative: Chest wall tenderness - Cardiovascular Cardiovascular Exam: Regular rate, Normal rhythm, Normal heart sounds Peripheral Pulses: 3+: Radial (R), Radial (L), Dorsalis Pedis (R), Dorsalis Pedis (L) - GI/Abdominal GI/Abdominal exam: Soft, Normal bowel sounds. negative: Tenderness - Rectal Rectal exam: Deferred - exam: Deferred - Extremities Extremities exam: Normal inspection, Full ROM, Normal capillary refill. negative: Calf tenderness, Pedal edema, Tenderness - Back Back exam: Reports: Normal inspection, Full ROM. Denies: Muscle spasm, Rash noted, Tenderness - Neurological Neurological exam: Alert, CN II-XII intact, Normal gait, Oriented X3, Reflexes normal. negative: Altered, Motor sensory deficit - Psychiatric Psychiatric exam: Normal affect, Normal mood - Skin Skin exam: Dry, Intact, Normal color, Warm Assessment and Plan - Assessment and Plan (1) Community acquired pneumonia, bilateral Current Visit: Yes Status: Acute Base Code: J18.9 - PNEUMONIA, UNSPECIFIED ORGANISM Comment: 10/28/18 -repeat CXR finds worsening of PNA -Jaciel pharmcaveronica to manage Vanco dosing -pt updated on continued concerns PNA, awaiting procalcitinin results 10/27/18 -Cont Rocephin 1gm BID, Zithromax 500mg PO -O2 to maintain >92% -neg strep, Flu A/B -continue Neb tx -7mm Left, 4mm right nodules, repeat CT 3 months - 10/26/18: - No recent exposure to sick contacts or travel, no hospitalizations. - CTA noting bilateral infiltrates upper/lower. - On Rocephin 1gm IV daily, Zithromax 500mg IV daily, change to PO. - Oxygen to maintain saturations > 92%. - Strep A negative, Check influenza A/B PCR. (2) Elevated d-dimer Current Visit: Yes Status: Acute Base Code: R79.89 - OTHER SPECIFIED ABNORMAL FINDINGS OF BLOOD CHEMISTRY Comment: 10/27/18: - D-dimer elevated 1.81 w/o clear etiology. - PE ruled out by CTA and no clinical suspicion of DVT. (3) Graves disease Current Visit: Yes Status: Acute Base Code: E05.00 - THYROTOXICOSIS W DIFFUSE GOITER W/O THYROTOXIC CRISIS Comment: 10/28/18: - Resume home dose of Methimazole 2.5mg daily. (4) HTN, goal below 140/80 Current Visit: Yes Status: Acute Base Code: I10 - ESSENTIAL (PRIMARY) HYPERTENSION Comment: 10/28/18: - Resume Amlodipine 10mg, [id number] and Troprolol XL 25mg. - Holding parameters for SBP <120, (5) Type 1 diabetes mellitus Current Visit: Yes Status: Chronic Qualifiers: Diabetes mellitus complication status: without complication Qualified Code(s): E10.9 - Type 1 diabetes mellitus without complications Base Code: E10.9 - TYPE 1 DIABETES MELLITUS WITHOUT COMPLICATIONS Comment: 10/28/18: - Resume home doses of basal bolus insulin Tresiba 56 units daily, correction insulin Novolog 10 units TIDAC, Moderate dose sliding scale ordered. Glycemic protocols for hypoglycemia. - ADA diet ordered. - Glucose target between 140-180mg/dL (6) Full code status Current Visit: Yes Status: Acute Base Code: Z78.9 - OTHER SPECIFIED HEALTH STATUS Comment: 10/28/18: - Full code status. (7) DVT prophylaxis Current Visit: Yes Status: Acute Base Code: Z29.9 - ENCOUNTER FOR PROPHYLACTIC MEASURES, UNSPECIFIED Comment: 10/28/18: - Lovenox 40mg sq daily. Results - Labs Result Diagrams: 10/28/18 06:18 10/28/18 06:18 Labs Last 24 Hours: Laboratory Results - last 24 hr 10/27/18 10/27/18 10/28/18 17:00 21:44 06:18 WBC 9.7 RBC 4.31 Hgb 11.7 Hct 37.7 MCV 87.5 MCH 27.1 MCHC 31.0 L RDW 13.7 Plt Count 278 MPV 10.3 Gran % 67.7 Lymphocytes % 16.2 Monocytes % 9.3 H Eosinophils % 6.2 H Basophils % 0.6 Absolute Neutrophils 6.57 Sodium Potassium Chloride Carbon Dioxide Anion Gap BUN Creatinine Estimated GFR POC Glucose 193 H 185 H Random Glucose Calcium 10/28/18 10/28/18 06:18 11:30 WBC RBC Hgb Hct MCV MCH MCHC RDW Plt Count MPV Gran % Lymphocytes % Monocytes % Eosinophils % Basophils % Absolute Neutrophils Sodium 139 Potassium 3.6 Chloride 100 Carbon Dioxide 26.0 Anion Gap 13.0 BUN 11 Creatinine 0.5 Estimated GFR > 60 POC Glucose 180 H Random Glucose 195 H Calcium 8.7 - Imaging and Cardiology Chest x-ray Status: Pending (audio clip reviewed) DVT/PE Assessment - Risk for VTE Risk for VTE: No Risk Level: High Risk Assessment Date: 10/26/18 Risk Assessment Time: 09:58 VTE Orders Placed or Will Be Placed: Yes - Active Medicaitons Current Medications: Current Medications Acetaminophen (Tylenol 500mg Tab) 1,000 mg PO Q6H PRN PRN Reason: PAIN - MILD(1-4)/FEVER Last Admin: 10/28/18 12:18 Dose: 1,000 mg Documented by: Albuterol/Ipratropium (Duoneb) 3 ml INH RESP.Q4H.[facility] Last Admin: 10/28/18 13:39 Dose: 3 ml Documented by: Amlodipine Besylate (Norvasc) 10 mg PO DAILY [facility] Last Admin: 10/28/18 09:21 Dose: 10 mg Documented by: Azithromycin (Zithromax) 500 mg PO QHS [facility] Last Admin: 10/27/18 21:54 Dose: 500 mg Documented by: Benazepril HCl (Lotensin) 40 mg PO DAILY [facility] Last Admin: 10/28/18 09:18 Dose: 40 mg Documented by: Benzonatate (Tessalon) 100 mg PO TID PRN PRN Reason: COUGH Last Admin: 10/28/18 10:20 Dose: 100 mg Documented by: Diphenhydramine HCl (Benadryl Capsule) 50 mg PO Q6H PRN PRN Reason: SLEEP Last Admin: 10/27/18 21:54 Dose: 50 mg Documented by: Enoxaparin Sodium (Lovenox) 40 mg SC DAILY [facility] Last Admin: 10/28/18 09:18 Dose: 40 mg Documented by: Guaifenesin (Mucinex) 600 mg PO BID [facility] Last Admin: 10/28/18 09:20 Dose: 600 mg Documented by: Sodium Chloride () 1,000 mls @ 125 mls/hr IV .Q8H PRN PRN Reason: LARGE VOLUME IV Last Infusion: 10/26/18 12:03 Dose: Infused Documented by: CEFTRIAXONE 1GM/50ML BAG (Ceftriaxone 1 Gm-D5w Bag) 1 gm in 50 mls @ 100 mls/hr IVPB Q24H [facility] Last Infusion: 10/27/18 21:39 Dose: Infused Documented by: Metoprolol Succinate (Toprol Xl) 25 mg PO QHS [facility] Last Admin: 10/27/18 21:54 Dose: 25 mg Documented by: Neomycin/Polymyxin/Hydrocortisone (Cortisporin Otic) 4 drop OT TID [facility] Stop: 11/07/18 16:01 Non-Formulary Medication (Insulin Aspart [Novolog Flexpen]) 10 units IM TIDINS [facility] Last Admin: 10/28/18 12:22 Dose: 10 units Documented by: Non-Formulary Medication (Insulin Degludec [Tresiba Flextouch U-200]) 56 units IM DAILY [facility] Last Admin: 10/28/18 10:22 Dose: Not Given Documented by: Non-Formulary Medication (Methimazole [Methimazole]) 5 mg PO DAILY [facility] Last Admin: 10/28/18 09:19 Dose: 2.5 mg Documented by: Patient Own Med: (Novolog Flexpen) 1 each SC TIDINS [facility]; Protocol Last Admin: 10/28/18 12:23 Dose: 8 each Documented by: SAÚL Plan - Labs Result Diagrams: 10/28/18 06:18 10/28/18 06:18
[2018-10-28] MEDS: NEOMYCIN/POLYMYXIN B SULF/HC 10ML BTL OT SCH ×3 (14:47→22:07)
[2018-10-28] MEDS ORDERED: VANCOMYCIN 1.5GM/300ML PREMIX 1.5 GM/300 ML PIGGYBACK IVPB SCH (16:00)
[2018-10-28] MEDS ORDERED: ALBUTEROL SULFATE (0.083%) 2.5 MG/3 ML NEB INH PRN (18:03)
[2018-10-28] MEDS: CEFTRIAXONE 1GM/50ML BAG 1 GM/50 ML BAG IVPB SCH (20:44)
[2018-10-28] MEDS: AZITHROMYCIN 500 MG TABLET PO SCH (22:07)
[2018-10-28] MEDS: METOPROLOL SUCC 25 MG TAB.ER PO SCH (22:07)
[2018-10-29] MEDS: VANCOMYCIN 1.5GM/300ML PREMIX 1.5 GM/300 ML PIGGYBACK IVPB SCH ×2 (03:12→12:29)
[2018-10-29] MEDS: IPRATROPIUM/ALBUTEROL (0.5MG/3MG) NEB INH SCH ×5 (05:53→22:15)
[2018-10-29 06:38] LABS: ABSOLUTE NEUTROPHIL COUNT 5.82; HEMATOCRIT 38.3 % (35.0-47.0); HEMOGLOBIN 11.9 gm/dl (11.6-16.0); MEAN CELL VOLUME 88.2 fl (81-97); MEAN CORPUSCULAR HEMOGLOBIN 27.4 pg (27-33); MEAN CORPUSCULAR HGB CONC 31.1 g/dl (32-36); PLATELET COUNT 300 K/uL (130-400); RED BLOOD COUNT 4.34 M/uL (3.80-5.40); RED CELL DISTRIBUTION WIDTH 13.8 % (11.5-14.5); WHITE BLOOD COUNT W/O DIFF 9.2 K/uL (4.2-12.2)
[2018-10-29 06:50] LABS: BLOOD UREA NITROGEN 8 mg/dL (6-20); CREATININE 0.5 mg/dL (0.5-0.9); EST GLOMERULAR FILTRATION RATE > 60 mL/min; GLUCOSE,RANDOM 175 mg/dL (74-109)
--- NOTE | 2018-10-29 07:10 | RADIOLOGY REPORT ---
EXAM: CHEST, TWO VIEWS HISTORY: FOLLOW-UP PNEUMONIA. COUGH. TECHNIQUE: Upright PA and lateral views of the chest were obtained. Comparison: Two view chest radiographic examination dated 04/22/18. CT angiogram of the chest dated 10/25/18. FINDINGS: The heart is not enlarged. No pulmonary venous hypertension is seen. Multifocal ground glass opacities are scattered in the mid and lower left lung consistent with pneumonitis. This is unchanged or slightly worsened in the interval. The right lung is clear. No costophrenic angle blunting or pneumothorax. IMPRESSION: MULTIFOCAL MIXED PRIMARILY ALVEOLAR OPACITIES SCATTERED IN THE MID AND LOWER LEFT LUNG SUSPICIOUS FOR PNEUMONIA. THESE ARE UNCHANGED OR SLIGHTLY WORSENED SINCE THE PRIOR CTA EXAMINATION. JOB NUMBER: [id number] MTDD
[2018-10-29] MEDS: INSULIN ASPART 10 UNIT IM SCH ×3 (08:15→17:36)
[2018-10-29] MEDS: NOVOLOG SC SCH ×3 (08:17→17:37)
[2018-10-29] MEDS: ENOXAPARIN 40 MG/0.4 ML SYR SC SCH (10:14)
[2018-10-29] MEDS: GUAIFENESIN 600 MG TABCR PO SCH ×2 (10:14→22:41)
[2018-10-29] MEDS: NEOMYCIN/POLYMYXIN B SULF/HC 10ML BTL OT SCH ×3 (10:14→22:41)
[2018-10-29] MEDS: AMLODIPINE BESYLATE 5MG TAB PO SCH (10:14)
[2018-10-29] MEDS: BENAZEPRIL 20 MG TABLET PO SCH (10:14)
[2018-10-29] MEDS: INSULIN DEGLUDEC 56 UNIT IM SCH (10:15)
[2018-10-29] MEDS: METHIMAZOLE 5 MG PO SCH ×2 (10:18→10:43)
[2018-10-29] MEDS: METHIMAZOLE 2.5 MG PO SCH (10:45)
--- NOTE | 2018-10-29 15:45 | Physician Progress Note ---
Subjective - Date Date of Physician Progress Note: 10/29/18 - Subjective Subjective Comment: Pt reports still feeing weakness, cold/clammy, painful to cough, shortness of breath with exertion. Denies chest pain but did require O2 at HS but does not have LJ or O2 at home. 10/28/18 Pt has continued cough, reports feeling slightly better but having difficulty sleeping with coughing. 10/29/18 Pt continues to cough but is not interfering with conversation or ADLs (per pt). Still having difficulty with sleep but states this is caused by the bed. Objective - Vital Signs Vital Signs: Vital Signs - Last 24 Hrs Temp Pulse Pulse Resp BP BP Pulse Ox 10/29/18 13:27 89 18 96 10/29/18 09:21 83 20 98 10/29/18 09:00 90 20 10/29/18 07:30 98.1 F 89 17 163/75 91 L 10/29/18 05:56 76 16 10/29/18 05:11 98.4 F 86 18 150/74 93 L 10/28/18 22:14 86 16 10/28/18 21:24 97.5 F L 91 H 20 157/71 98 10/28/18 21:00 18 10/28/18 18:47 68 16 - General General Appearance: Alert, Oriented x3, Cooperative, Mild distress - Head Head exam: Normal inspection - Eye Eye exam: Normal appearance, PERRL, EOMI. negative: Conjunctival injection, Nystagmus Pupils: Normal accommodation - ENT ENT exam: Normal exam, Mucous membranes dry, Normal external ear exam, Normal orophraynx, TM's normal bilaterally Ear exam: Normal external inspection, External canal tenderness, Other (TMs intact, erytema and edema canals). negative: Auricular hematoma, Auricular trauma Nasal Exam: Normal inspection. negative: Discharge, Sinus tenderness Mouth exam: Normal external inspection, Tongue normal Teeth exam: Normal inspection. negative: Dental caries Throat exam: Normal inspection. negative: Tonsillar erythema, Tonsillar exudate - Neck Neck exam: Normal inspection, Full ROM. negative: Lymphadenopathy, Meningismus, Tenderness - Respiratory Respiratory exam: Prolonged expiratory, Wheezes, Other (intermittent cough). negative: Chest wall tenderness - Cardiovascular Cardiovascular Exam: Regular rate, Normal rhythm, Normal heart sounds Peripheral Pulses: 3+: Radial (R), Radial (L), Dorsalis Pedis (R), Dorsalis Pedis (L) - GI/Abdominal GI/Abdominal exam: Soft, Normal bowel sounds. negative: Tenderness - Rectal Rectal exam: Deferred - exam: Deferred - Extremities Extremities exam: Normal inspection, Full ROM, Normal capillary refill. negative: Calf tenderness, Pedal edema, Tenderness - Back Back exam: Reports: Normal inspection, Full ROM. Denies: Muscle spasm, Rash noted, Tenderness - Neurological Neurological exam: Alert, CN II-XII intact, Normal gait, Oriented X3, Reflexes normal. negative: Altered, Motor sensory deficit - Psychiatric Psychiatric exam: Normal affect, Normal mood - Skin Skin exam: Dry, Intact, Normal color, Warm Assessment and Plan - Assessment and Plan (1) Community acquired pneumonia, bilateral Current Visit: Yes Status: Acute Base Code: J18.9 - PNEUMONIA, UNSPECIFIED ORGANISM Comment: 10/29/18 -pt improving with addition of vanco -repeat CXR in the AM -changing IV Vanco to Zyvox PO -consider D/C if CXR improved 10/28/18 -repeat CXR finds worsening of PNA -Jaciel pharmcay to manage Vanco dosing -pt updated on continued concerns PNA, awaiting procalcitinin results 10/27/18 -Cont Rocephin 1gm BID, Zithromax 500mg PO -O2 to maintain >92% -neg strep, Flu A/B -continue Neb tx -7mm Left, 4mm right nodules, repeat CT 3 months - 10/26/18: - No recent exposure to sick contacts or travel, no hospitalizations. - CTA noting bilateral infiltrates upper/lower. - On Rocephin 1gm IV daily, Zithromax 500mg IV daily, change to PO. - Oxygen to maintain saturations > 92%. - Strep A negative, Check influenza A/B PCR. (2) Elevated d-dimer Current Visit: Yes Status: Acute Base Code: R79.89 - OTHER SPECIFIED ABNORMAL FINDINGS OF BLOOD CHEMISTRY Comment: 10/29/18: - D-dimer elevated 1.81 w/o clear etiology. - PE ruled out by CTA and no clinical suspicion of DVT. (3) Graves disease Current Visit: Yes Status: Acute Base Code: E05.00 - THYROTOXICOSIS W DIFFUSE GOITER W/O THYROTOXIC CRISIS Comment: 10/29/18: - Resume home dose of Methimazole 2.5mg daily. (4) HTN, goal below 140/80 Current Visit: Yes Status: Acute Base Code: I10 - ESSENTIAL (PRIMARY) HYPERTENSION Comment: 10/29/18: - Resume Amlodipine 10mg, [id number] and Troprolol XL 25mg. - Holding parameters for SBP <120, (5) Type 1 diabetes mellitus Current Visit: Yes Status: Chronic Qualifiers: Diabetes mellitus complication status: without complication Qualified Code(s): E10.9 - Type 1 diabetes mellitus without complications Base Code: E10.9 - TYPE 1 DIABETES MELLITUS WITHOUT COMPLICATIONS Comment: 10/29/18: - Resume home doses of basal bolus insulin Tresiba 56 units daily, correction insulin Novolog 10 units TIDAC, Moderate dose sliding scale ordered. Glycemic protocols for hypoglycemia. - ADA diet ordered. - Glucose target between 140-180mg/dL (6) Full code status Current Visit: Yes Status: Acute Base Code: Z78.9 - OTHER SPECIFIED HEALTH STATUS Comment: 10/29/18: - Full code status. (7) DVT prophylaxis Current Visit: Yes Status: Acute Base Code: Z29.9 - ENCOUNTER FOR PROPHYLACTIC MEASURES, UNSPECIFIED Comment: 10/29/18: - Lovenox 40mg sq daily. Results - Labs Result Diagrams: 10/29/18 06:23 10/29/18 06:23 Labs Last 24 Hours: Laboratory Results - last 24 hr 10/28/18 10/28/18 10/29/18 17:00 22:02 06:23 WBC 9.2 RBC 4.34 Hgb 11.9 Hct 38.3 MCV 88.2 MCH 27.4 MCHC 31.1 L RDW 13.8 Plt Count 300 MPV 10.0 Neutrophils % 64.0 Band Neutrophils % 0.0 Eosinophils % Not Reportable Basophils % Not Reportable Absolute Neutrophils 5.82 Lymphocytes 20.0 Monocytes 10.0 H Basophils 0.0 Eosinophil Count 6.0 Sodium Potassium Chloride Carbon Dioxide Anion Gap BUN Creatinine Estimated GFR POC Glucose 150 H 181 H Random Glucose Calcium Procalcitonin 10/29/18 10/29/18 10/29/18 06:23 06:23 11:59 WBC RBC Hgb Hct MCV MCH MCHC RDW Plt Count MPV Neutrophils % Band Neutrophils % Eosinophils % Basophils % Absolute Neutrophils Lymphocytes Monocytes Basophils Eosinophil Count Sodium 141 Potassium 3.7 Chloride 102 Carbon Dioxide 25.0 Anion Gap 14.0 BUN 8 Creatinine 0.5 Estimated GFR > 60 POC Glucose 95 Random Glucose 175 H Calcium 8.6 Procalcitonin 0.078 DVT/PE Assessment - Risk for VTE Risk for VTE: No Risk Level: High Risk Assessment Date: 10/26/18 Risk Assessment Time: 09:58 VTE Orders Placed or Will Be Placed: Yes - Active Medicaitons Current Medications: Current Medications Acetaminophen (Tylenol 500mg Tab) 1,000 mg PO Q6H PRN PRN Reason: PAIN - MILD(1-4)/FEVER Last Admin: 10/28/18 20:41 Dose: 1,000 mg Documented by: Albuterol Sulfate (Albuterol Sulfate) 2.5 mg INH RESP.Q2H PRN PRN Reason: DIFFICULTY IN BREATHING Albuterol/Ipratropium (Duoneb) 3 ml INH RESP.Q4H.[facility] Last Admin: 10/29/18 13:27 Dose: 3 ml Documented by: Amlodipine Besylate (Norvasc) 10 mg PO DAILY [facility] Last Admin: 10/29/18 10:14 Dose: 10 mg Documented by: Azithromycin (Zithromax) 500 mg PO QHS [facility] Last Admin: 10/28/18 22:07 Dose: 500 mg Documented by: Benazepril HCl (Lotensin) 40 mg PO DAILY [facility] Last Admin: 10/29/18 10:14 Dose: 40 mg Documented by: Benzonatate (Tessalon) 100 mg PO TID PRN PRN Reason: COUGH Last Admin: 10/28/18 10:20 Dose: 100 mg Documented by: Diphenhydramine HCl (Benadryl Capsule) 50 mg PO Q6H PRN PRN Reason: SLEEP Last Admin: 10/27/18 21:54 Dose: 50 mg Documented by: Enoxaparin Sodium (Lovenox) 40 mg SC DAILY [facility] Last Admin: 10/29/18 10:14 Dose: 40 mg Documented by: Guaifenesin (Mucinex) 600 mg PO BID [facility] Last Admin: 10/29/18 10:14 Dose: 600 mg Documented by: Sodium Chloride () 1,000 mls @ 125 mls/hr IV .Q8H PRN PRN Reason: LARGE VOLUME IV Last Infusion: 10/26/18 12:03 Dose: Infused Documented by: CEFTRIAXONE 1GM/50ML BAG (Ceftriaxone 1 Gm-D5w Bag) 1 gm in 50 mls @ 100 mls/hr IVPB Q24H [facility] Last Infusion: 10/28/18 21:33 Dose: Infused Documented by: Linezolid (Linezolid) 600 mg PO BID [facility] Metoprolol Succinate (Toprol Xl) 25 mg PO QHS [facility] Last Admin: 10/28/18 22:07 Dose: 25 mg Documented by: Neomycin/Polymyxin/Hydrocortisone (Cortisporin Otic) 4 drop OT TID [facility] Stop: 11/07/18 16:01 Last Admin: 10/29/18 10:14 Dose: 4 drop Documented by: Non-Formulary Medication (Insulin Aspart [Novolog Flexpen]) 10 units IM TIDINS [facility] Last Admin: 10/29/18 12:24 Dose: 10 units Documented by: Non-Formulary Medication (Insulin Degludec [Tresiba Flextouch U-200]) 56 units IM DAILY [facility] Last Admin: 10/29/18 10:15 Dose: 56 units Documented by: Non-Formulary Medication (Methimazole [Methimazole]) 2.5 mg PO DAILY [facility] Last Admin: 10/29/18 10:45 Dose: 2.5 mg Documented by: Patient Own Med: (Novolog Flexpen) 1 each SC TIDINS [facility]; Protocol Last Admin: 10/29/18 12:25 Dose: Not Given Documented by: SAÚL Plan - Labs Result Diagrams: 10/29/18 06:23 10/29/18 06:23
[2018-10-29] MEDS: BENZONATATE 100 MG CAPSULE PO PRN ×2 (17:33→22:42)
[2018-10-29] MEDS: LINEZOLID 600 MG TABLET PO SCH ×2 (17:35→22:41)
[2018-10-29] MEDS: CEFTRIAXONE 1GM/50ML BAG 1 GM/50 ML BAG IVPB SCH (21:09)
[2018-10-29] MEDS: ACETAMINOPHEN 500 MG TABLET PO PRN (21:17)
[2018-10-29] MEDS: METOPROLOL SUCC 25 MG TAB.ER PO SCH (22:41)
[2018-10-29] MEDS: AZITHROMYCIN 500 MG TABLET PO SCH (22:42)
[2018-10-29] MEDS: DIPHENHYDRAMINE HCL 25 MG CAPSULE PO PRN (22:43)
[2018-10-30] MEDS: IPRATROPIUM/ALBUTEROL (0.5MG/3MG) NEB INH SCH ×3 (05:28→14:44)
[2018-10-30 06:32] LABS: ABSOLUTE NEUTROPHIL COUNT 4.99; HEMATOCRIT 36.7 % (35.0-47.0); HEMOGLOBIN 11.4 gm/dl (11.6-16.0); MEAN CORPUSCULAR HEMOGLOBIN 27.3 pg (27-33); MEAN CORPUSCULAR HGB CONC 31.1 g/dl (32-36); MEAN PLATELET VOLUME 9.6 fl (7.4-10.4); PLATELET COUNT 319 K/uL (130-400); RED BLOOD COUNT 4.17 M/uL (3.80-5.40); RED CELL DISTRIBUTION WIDTH 13.8 % (11.5-14.5); WHITE BLOOD COUNT W/O DIFF 8.3 K/uL (4.2-12.2)
[2018-10-30 06:45] LABS: BLOOD UREA NITROGEN 8 mg/dL (6-20); CREATININE 0.5 mg/dL (0.5-0.9); EST GLOMERULAR FILTRATION RATE > 60 mL/min; GLUCOSE,RANDOM 159 mg/dL (74-109)
[2018-10-30 06:57] LABS: PLATELET ESTIMATE NORMAL (NORMAL)
[2018-10-30] MEDS: NOVOLOG SC SCH ×2 (07:53→12:00)
[2018-10-30] MEDS: INSULIN ASPART 10 UNIT IM SCH ×2 (07:53→11:59)
[2018-10-30] MEDS: INSULIN DEGLUDEC 56 UNIT IM SCH ×2 (07:54→11:10)
[2018-10-30] MEDS: LINEZOLID 600 MG TABLET PO SCH (09:23)
[2018-10-30] MEDS: NEOMYCIN/POLYMYXIN B SULF/HC 10ML BTL OT SCH (09:23)
[2018-10-30] MEDS: GUAIFENESIN 600 MG TABCR PO SCH (09:24)
[2018-10-30] MEDS: ENOXAPARIN 40 MG/0.4 ML SYR SC SCH (09:24)
[2018-10-30] MEDS: BENAZEPRIL 20 MG TABLET PO SCH (09:25)
[2018-10-30] MEDS: METHIMAZOLE 2.5 MG PO SCH (09:26)
[2018-10-30] MEDS: AMLODIPINE BESYLATE 5MG TAB PO SCH (09:26)
[2018-10-30] MEDS ORDERED: METRONIDAZOLE 250 MG TABLET PO SCH (10:00)
[2018-10-30] MEDS: ACETAMINOPHEN 500 MG TABLET PO PRN (11:58)
[2018-10-30] MEDS: BENZONATATE 100 MG CAPSULE PO PRN (11:59)
--- NOTE | 2018-10-30 12:25 | Discharge Summary ---
Providers Discharge Summary Date: 10/30/18 Date of admission: 10/26/18 01:16 Expected Date of Discharge: 10/30/18 Attending physician: BREEZY VIDAL Primary care physician: Geovanny Rider D.O. Physical Exam - Vital Signs Vital Signs: Vital Signs - Last 24 Hrs Temp Pulse Pulse Resp BP BP Pulse Ox 10/30/18 09:55 78 20 94 L 10/30/18 07:15 98.0 F 86 17 168/85 94 L 10/30/18 05:45 98.1 F 69 22 149/67 91 L 10/30/18 05:28 82 24 97 10/29/18 22:16 76 22 96 10/29/18 21:01 99.5 F 81 18 153/71 95 10/29/18 18:39 92 H 20 95 10/29/18 17:00 97.9 F 85 16 164/57 91 L 10/29/18 13:27 89 18 96 - General General Appearance: Alert, Oriented x3, Cooperative, No acute distress - Head Head exam: Normal inspection - Eye Eye exam: Normal appearance, PERRL, EOMI. negative: Conjunctival injection, Nystagmus Pupils: Normal accommodation - ENT ENT exam: Normal exam, Mucous membranes dry, Normal external ear exam, Normal orophraynx, TM's normal bilaterally Ear exam: Normal external inspection, External canal tenderness, Other (TMs intact, erytema and edema canals). negative: Auricular hematoma, Auricular trauma Nasal Exam: Normal inspection. negative: Discharge, Sinus tenderness Mouth exam: Normal external inspection, Tongue normal Teeth exam: Normal inspection. negative: Dental caries Throat exam: Normal inspection. negative: Tonsillar erythema, Tonsillar exudate - Neck Neck exam: Normal inspection, Full ROM. negative: Lymphadenopathy, Meningismus, Tenderness - Respiratory Respiratory exam: Decreased breath sounds. negative: Accessory muscle use, Chest wall tenderness, Rhonchi - Cardiovascular Cardiovascular Exam: Regular rate, Normal rhythm, Normal heart sounds Peripheral Pulses: 3+: Radial (R), Radial (L), Dorsalis Pedis (R), Dorsalis Pedis (L) - GI/Abdominal GI/Abdominal exam: Soft, Normal bowel sounds. negative: Tenderness - Rectal Rectal exam: Deferred - exam: Deferred - Extremities Extremities exam: Normal inspection, Full ROM, Normal capillary refill. negative: Calf tenderness, Pedal edema, Tenderness - Back Back exam: Reports: Normal inspection, Full ROM. Denies: Muscle spasm, Rash noted, Tenderness - Neurological Neurological exam: Alert, CN II-XII intact, Normal gait, Oriented X3, Reflexes normal. negative: Altered, Motor sensory deficit - Psychiatric Psychiatric exam: Normal affect, Normal mood - Skin Skin exam: Dry, Intact, Normal color, Warm Hospitalization - Hospitalization Admission Diagnosis: Bilateral pneumonia; leukocytosis, elevated lactate, Type 1 Diabetes, dyspnea - Problem List/Discharge Diagnosis (1) Community acquired pneumonia, bilateral Current Visit: Yes Status: Acute Base Code: J18.9 - PNEUMONIA, UNSPECIFIED ORGANISM Comment: 10/30/18 -CXR does not show significant clearing of the infiltrate -Dr Rider consulted and is aware of pt improving clincial picture but CXR not have significant improvement -D/C with flaygl 500mg Q8hr x 10 days, cefdinir 300mg BID x10 days, Zyvox 600mg BID x 10 days -duo neb q4hr with awake, alb neb q2hr prn treatments, nebulizer order 10/29/18 -pt improving with addition of vanco -repeat CXR in the AM -changing IV Vanco to Zyvox PO -consider D/C if CXR improved 10/28/18 -repeat CXR finds worsening of PNA -Jaciel pharmcaveronica to manage Vanco dosing -pt updated on continued concerns PNA, awaiting procalcitinin results 10/27/18 -Cont Rocephin 1gm BID, Zithromax 500mg PO -O2 to maintain >92% -neg strep, Flu A/B -continue Neb tx -7mm Left, 4mm right nodules, repeat CT 3 months - 10/26/18: - No recent exposure to sick contacts or travel, no hospitalizations. - CTA noting bilateral infiltrates upper/lower. - On Rocephin 1gm IV daily, Zithromax 500mg IV daily, change to PO. - Oxygen to maintain saturations > 92%. - Strep A negative, Check influenza A/B PCR. (2) Elevated d-dimer Current Visit: Yes Status: Acute Base Code: R79.89 - OTHER SPECIFIED ABNORMAL FINDINGS OF BLOOD CHEMISTRY Comment: 10/30/18: - D-dimer elevated 1.81 w/o clear etiology. - PE ruled out by CTA and no clinical suspicion of DVT. (3) Graves disease Current Visit: Yes Status: Acute Base Code: E05.00 - THYROTOXICOSIS W DIFFUSE GOITER W/O THYROTOXIC CRISIS Comment: 10/30/18: - Resume home dose of Methimazole 2.5mg daily. (4) HTN, goal below 140/80 Current Visit: Yes Status: Acute Base Code: I10 - ESSENTIAL (PRIMARY) HYPERTENSION Comment: 10/30/18: - Resume Amlodipine 10mg, [id number] and Troprolol XL 25mg. - Holding parameters for SBP <120, (5) Type 1 diabetes mellitus Current Visit: Yes Status: Chronic Discharge Diagnosis: Diabetes mellitus complication status: without complication Qualified Code(s): E10.9 - Type 1 diabetes mellitus without complications Base Code: E10.9 - TYPE 1 DIABETES MELLITUS WITHOUT COMPLICATIONS Comment: 10/30/18: - Resume home doses of basal bolus insulin Tresiba 56 units daily, correction insulin Novolog 10 units TIDAC, Moderate dose sliding scale ordered. Glycemic protocols for hypoglycemia. - ADA diet ordered. - Glucose target between 140-180mg/dL (6) Full code status Current Visit: Yes Status: Acute Base Code: Z78.9 - OTHER SPECIFIED HEALTH STATUS Comment: 10/30/18: - Full code status. (7) DVT prophylaxis Current Visit: Yes Status: Acute Base Code: Z29.9 - ENCOUNTER FOR PROPHYLACTIC MEASURES, UNSPECIFIED Comment: 10/29/18: - Lovenox 40mg sq daily. - Hospitalization Course Disposition: Home, Self-Care Hospital Course: Mrs. Reyes is a 58 y/o female with history of type I diabetes, hypertension and Grave's disease here after having cold like symptoms beginning last Friday. The patient says she began to feel weak and then noticed that she had a fever of 101.2. She says that her blood sugars were also becoming uncontrolled and she developed a productive cough followed by mild shortness of breath. The patient denies recent travel, sick contacts or hospital admissions. She takes annual flu shot but says that she hasn't had the pneumonia vaccines. On arrival to the ED the patient's d-dimer was elevated at 1.181 and subsequent CTA was negative for PE but showed multiple focal infiltrates of the bilateral, upper and lower lungs. The patient was mildly tachycardic and had mild fever of 100.1 on admission. She is admitted for bilateral pneumonia and hyperglycemia. PCP: Dr. Rider Procedures: Imaging and X-Rays 10/25/18 21:50 CHEST CTA w contrast [CTA] Stat 10/28/18 10:49 CHEST 2 VIEWS [RAD] Stat 10/30/18 07:00 CHEST 2 VIEWS [RAD] Stat Cardiology Procedures 10/25/18 20:55 EKG NOW Abnormal Labs: Abnormal Lab Results 10/25/18 10/25/18 10/25/18 Range/Units 20:10 21:00 21:00 WBC 12.4 H (4.2-12.2) K/uL Hgb (11.6-16.0) gm/dl MCHC (32-36) g/dl MPV 10.5 H (7.4-10.4) fl Lymphocytes % 10.5 L (16-45) % Monocytes % (0-9) % Eosinophils % (0-6) % Monocytes (0-9) % D-Dimer (0-0.59) mg/L FEU VBG pH 7.45 H (7.33-7.43) Chloride 97 L (98-107) mmol/L POC Glucose (70-110) mg/dL Random Glucose 264 H (74-109) mg/dL Calcium (8.6-10.0) mg/dL Alkaline Phosphatase 157 H (35-104) U/L Albumin 3.8 L (4.0-5.0) g/dL Albumin/Globulin Ratio 1.0 L (1.1-1.8) Urine Glucose (UA) 100 mg/dl H (NEGATIVE) 10/25/18 10/26/18 10/26/18 Range/Units 21:00 06:25 06:25 WBC (4.2-12.2) K/uL Hgb (11.6-16.0) gm/dl MCHC 31.4 L (32-36) g/dl MPV (7.4-10.4) fl Lymphocytes % 11.2 L (16-45) % Monocytes % (0-9) % Eosinophils % (0-6) % Monocytes (0-9) % D-Dimer 1.81 H (0-0.59) mg/L FEU VBG pH (7.33-7.43) Chloride (98-107) mmol/L POC Glucose (70-110) mg/dL Random Glucose 300 H (74-109) mg/dL Calcium 8.4 L (8.6-10.0) mg/dL Alkaline Phosphatase 138 H (35-104) U/L Albumin 3.5 L (4.0-5.0) g/dL Albumin/Globulin Ratio (1.1-1.8) Urine Glucose (UA) (NEGATIVE) 10/26/18 10/26/18 10/26/18 Range/Units 11:37 17:01 21:33 WBC (4.2-12.2) K/uL Hgb (11.6-16.0) gm/dl MCHC (32-36) g/dl MPV (7.4-10.4) fl Lymphocytes % (16-45) % Monocytes % (0-9) % Eosinophils % (0-6) % Monocytes (0-9) % D-Dimer (0-0.59) mg/L FEU VBG pH (7.33-7.43) Chloride (98-107) mmol/L POC Glucose 235 H 152 H 120 H (70-110) mg/dL Random Glucose (74-109) mg/dL Calcium (8.6-10.0) mg/dL Alkaline Phosphatase (35-104) U/L Albumin (4.0-5.0) g/dL Albumin/Globulin Ratio (1.1-1.8) Urine Glucose (UA) (NEGATIVE) 10/27/18 10/27/18 10/27/18 Range/Units 06:15 06:15 11:35 WBC (4.2-12.2) K/uL Hgb (11.6-16.0) gm/dl MCHC 31.2 L (32-36) g/dl MPV (7.4-10.4) fl Lymphocytes % 13.4 L (16-45) % Monocytes % (0-9) % Eosinophils % (0-6) % Monocytes (0-9) % D-Dimer (0-0.59) mg/L FEU VBG pH (7.33-7.43) Chloride (98-107) mmol/L POC Glucose 234 H (70-110) mg/dL Random Glucose 135 H (74-109) mg/dL Calcium (8.6-10.0) mg/dL Alkaline Phosphatase (35-104) U/L Albumin (4.0-5.0) g/dL Albumin/Globulin Ratio (1.1-1.8) Urine Glucose (UA) (NEGATIVE) 10/27/18 10/27/18 10/28/18 Range/Units 17:00 21:44 06:18 WBC (4.2-12.2) K/uL Hgb (11.6-16.0) gm/dl MCHC 31.0 L (32-36) g/dl MPV (7.4-10.4) fl Lymphocytes % (16-45) % Monocytes % 9.3 H (0-9) % Eosinophils % 6.2 H (0-6) % Monocytes (0-9) % D-Dimer (0-0.59) mg/L FEU VBG pH (7.33-7.43) Chloride (98-107) mmol/L POC Glucose 193 H 185 H (70-110) mg/dL Random Glucose (74-109) mg/dL Calcium (8.6-10.0) mg/dL Alkaline Phosphatase (35-104) U/L Albumin (4.0-5.0) g/dL Albumin/Globulin Ratio (1.1-1.8) Urine Glucose (UA) (NEGATIVE) 10/28/18 10/28/18 10/28/18 Range/Units 06:18 11:30 17:00 WBC (4.2-12.2) K/uL Hgb (11.6-16.0) gm/dl MCHC (32-36) g/dl MPV (7.4-10.4) fl Lymphocytes % (16-45) % Monocytes % (0-9) % Eosinophils % (0-6) % Monocytes (0-9) % D-Dimer (0-0.59) mg/L FEU VBG pH (7.33-7.43) Chloride (98-107) mmol/L POC Glucose 180 H 150 H (70-110) mg/dL Random Glucose 195 H (74-109) mg/dL Calcium (8.6-10.0) mg/dL Alkaline Phosphatase (35-104) U/L Albumin (4.0-5.0) g/dL Albumin/Globulin Ratio (1.1-1.8) Urine Glucose (UA) (NEGATIVE) 10/28/18 10/29/18 10/29/18 Range/Units 22:02 06:23 06:23 WBC (4.2-12.2) K/uL Hgb (11.6-16.0) gm/dl MCHC 31.1 L (32-36) g/dl MPV (7.4-10.4) fl Lymphocytes % (16-45) % Monocytes % (0-9) % Eosinophils % (0-6) % Monocytes 10.0 H (0-9) % D-Dimer (0-0.59) mg/L FEU VBG pH (7.33-7.43) Chloride (98-107) mmol/L POC Glucose 181 H (70-110) mg/dL Random Glucose 175 H (74-109) mg/dL Calcium (8.6-10.0) mg/dL Alkaline Phosphatase (35-104) U/L Albumin (4.0-5.0) g/dL Albumin/Globulin Ratio (1.1-1.8) Urine Glucose (UA) (NEGATIVE) 10/29/18 10/30/18 10/30/18 Range/Units 17:37 06:20 06:20 WBC (4.2-12.2) K/uL Hgb 11.4 L (11.6-16.0) gm/dl MCHC 31.1 L (32-36) g/dl MPV (7.4-10.4) fl Lymphocytes % (16-45) % Monocytes % (0-9) % Eosinophils % (0-6) % Monocytes (0-9) % D-Dimer (0-0.59) mg/L FEU VBG pH (7.33-7.43) Chloride (98-107) mmol/L POC Glucose 254 H (70-110) mg/dL Random Glucose 159 H (74-109) mg/dL Calcium (8.6-10.0) mg/dL Alkaline Phosphatase (35-104) U/L Albumin (4.0-5.0) g/dL Albumin/Globulin Ratio (1.1-1.8) Urine Glucose (UA) (NEGATIVE) 10/30/18 Range/Units 11:35 WBC (4.2-12.2) K/uL Hgb (11.6-16.0) gm/dl MCHC (32-36) g/dl MPV (7.4-10.4) fl Lymphocytes % (16-45) % Monocytes % (0-9) % Eosinophils % (0-6) % Monocytes (0-9) % D-Dimer (0-0.59) mg/L FEU VBG pH (7.33-7.43) Chloride (98-107) mmol/L POC Glucose 131 H (70-110) mg/dL Random Glucose (74-109) mg/dL Calcium (8.6-10.0) mg/dL Alkaline Phosphatase (35-104) U/L Albumin (4.0-5.0) g/dL Albumin/Globulin Ratio (1.1-1.8) Urine Glucose (UA) (NEGATIVE) Condition at Discharge: (2) Stable Discharge Medications - Discharge Medications Prescriptions: Albuterol Sulfate 0.083% [Neb] [Albuterol Sulfate] 2.5 mg INH RESP.Q2H PRN 10 Days #60 nebulization solution PRN Reason: Difficulty In Breathing Neomycin/Polymyxin B Sulf/Hc [Cortisporin Otic] 4 drop OT TID 9 Days #1 bottle Ipratropium/Albuterol [Duoneb] 3 ml INH RESP.Q4H.WA #60 ampul.neb Metronidazole [Flagyl] 500 mg PO Q8H 10 Days #30 tablet Benzonatate [Tessalon Perles] 100 mg PO TID PRN 10 Days #30 capsule PRN Reason: Cough Linezolid [Zyvox] 600 mg PO BID #14 tablet Home Medications: Ambulatory Orders Amlodipine Besylate/Benazepril [Amlodipine-Benazepril 10-40 mg] 1 tab PO DAILY 04/22/18 [Last Taken 04/22/18] Insulin Aspart [Novolog Flexpen] 10 units SQ ASDIR 04/22/18 [Last Taken 04/22/18] Insulin Degludec [Tresiba Flextouch U-200] 56 units SQ DAILY 04/22/18 [Last Taken 04/22/18] Methimazole 2.5 mg PO DAILY 04/22/18 [Last Taken 04/22/18] Metoprolol Succinate 25 mg PO DAILY 04/22/18 [Last Taken 04/22/18] Linezolid [Zyvox] 600 mg PO BID #14 tablet 10/29/18 [Last Taken Unknown] Acetaminophen [Tylenol 500Mg Tab] 1,000 mg PO Q6H PRN tablet 10/30/18 [Last Taken Unknown] Albuterol Sulfate 0.083% [Neb] [Albuterol Sulfate] 2.5 mg INH RESP.Q2H PRN 10 Days #60 nebulization solution 10/30/18 [Last Taken Unknown] Benzonatate [Tessalon Perles] 100 mg PO TID PRN 10 Days #30 capsule 10/30/18 [Last Taken Unknown] Cefdinir [Omnicef] 300 mg PO BID 7 Days #14 cap 10/30/18 [Last Taken Unknown] Guaifenesin [Mucinex] 600 mg PO BID tabcr 10/30/18 [Last Taken Unknown] Insulin Aspart [Novolog Flexpen] 10 units IM TIDINS 10/30/18 [Last Taken Unknown] Ipratropium/Albuterol [Duoneb] 3 ml INH RESP.Q4H.CT #60 ampul.neb 10/30/18 [Last Taken Unknown] Linezolid 600 mg PO BID 6 Days #0 tablet 10/30/18 [Last Taken Unknown] Metoprolol Succinate [Toprol Xl] 25 mg PO QHS tab.er.24h 10/30/18 [Last Taken Unknown] Metronidazole [Flagyl] 500 mg PO Q8H 10 Days #30 tablet 10/30/18 [Last Taken Unknown] Neomycin/Polymyxin B Sulf/Hc [Cortisporin Otic] 4 drop OT TID 9 Days #1 bottle 10/30/18 [Last Taken Unknown] Discharge Plan - Discharge Instructions Activity at Discharge: Increase Activity as Tolerated Diet at Discharge: Advance to Usual Diet Instructions: Guaifenesin (By mouth), Community Acquired Pneumonia (DC), How to Use a Nebulizer (DC), Safe Use of Cough and Cold Medicines (DC), How Your Lungs Work (DC), Shortness of Breath (DC) Additional Instructions: Activity: Increase Activity as Tolerated Diet: Advance to Usual Diet Follow Up: Follow up appointment with Dr. Rider November 06 at 11:15am. Office phone: . Additional: Chest Xray to be completed on November 03 at [facility]. [place] at [facility]. Quality Measures - Quality Measures Quality Measures: Documentation of Current Medications in Medical Record, Screening for High Blood Pressure and F/U Documented - Current Medications Quality Measure: Measure #130: Documentation of Current Medications Documentation of Current Medications: <Current Medications Documented/Reviewed> [G8427] - Blood Pressure Screening Quality Measure: Screening for High Blood Pressure and Follow-Up Documented Does Patient Have Any of the Following: Active Dx of HTN Blood Pressure Classification: Pre-Hypertensive BP Reading Systolic Measurement: 168 Diastolic Measurement: 85 Screening for High Blood Pressure: Patient Exclusion, Hx of HTN [G9744] - Elder Abuse Suspicion Index EASI Reference Information: Jonas NICHOLSON, Luís C, Silvano D, Lizbeth Carballo.Development and validation of a tool to assist physicians identification of elder abuse: The Elder Abuse Suspicion Index (EASI ). Journal of Elder Abuse and Neglect, 2008; 20 (3): 276-300.
--- NOTE | 2018-10-31 22:14 | RADIOLOGY REPORT ---
EXAM: CHEST 2 VIEWS HISTORY: FOLLOW-UP PNEUMONIA. TECHNIQUE: Upright PA and lateral views of the chest. COMPARISON: Two-view chest radiographic examination dated 10/28/2018. FINDINGS: The heart is stable in size. Mixed reticulonodular and ground-glass opacities are scattered in each lung. These are most pronounced on the left. There has been mild worsening in the interval. The posterior costophrenic angles are slightly ill-defined with new tiny effusions possible. No acute osseous abnormality. IMPRESSION: 1. MIXED RETICULONODULAR AND GROUND-GLASS OPACITIES IN EACH LUNG, LEFT GREATER THAN RIGHT, MILDLY WORSENED IN THE INTERVAL CONSISTENT WITH PNEUMONITIS OR LESS LIKELY EDEMA. 2. POSSIBLE TINY PLEURAL EFFUSIONS. JOB NUMBER: [id number] [facility]
== END 2018-10-30 14:55 | disposition home or self-care (01) | DRG 195 ==
LOC: ER 20:24 → MEDSURG 10-26 01:16
PROVIDERS: ADMIT Internal Medicine; ATTEND Internal Medicine
DX: J18.9 Pneumonia, unspecified organism (principal); E10.9 Type 1 diabetes mellitus without complications; R74.0 Nonspecific elevation of levels of transaminase and lactic acid dehydrogenase [LDH]; R05 Cough; E05.00 Thyrotoxicosis with diffuse goiter without thyrotoxic crisis or storm; R79.89 Other specified abnormal findings of blood chemistry
CPT/HCPCS: 36416; 71046; 71275; 80048; 80053; 81001; 82009; 82800; 82948; 83605; 84145; 85025; 85027; 85379; 87070; 87880; 93005; 93010; 94010; 94640; 94667; 94761; 96365; 99223; 99233; 99239; 99285; J0696; J1650; J3370